=== PATIENT | female | born 1960 | race African-American/Black ===

== ENCOUNTER 2019-05-05 01:34 | Emergency (ER) | payer MEDICAID, OTHER ==
[~2019-05-05] VITALS: Ht 170.2 cm; Wt 104.3 kg
[~2019-05-05 01:34] MED LIST: ABILIFY30 MG ORAL; AMLODIPINE BES2.5 MG ORAL; DIPHENHYDRAMINE25 M1 ORAL; IBUPROFEN600 MG ORAL; KEFLEX500 MG ORAL; LEVETIRACETAM500 MG ORAL; NAPROSYN500 M1 ORAL; NORCO 5-325 TA1 EACH ORAL; TRUSOPT10 ML BOTH EYES; VALPROIC A250 MG/51 PO
[2019-05-05 01:42] VITALS: BP 144/89
--- NOTE | 2019-05-05 01:43 | Emergency Room Report ---
History of Present Illness General Chief Complaint: Abdominal Pain Source: Patient Present Illness HPI Disclaimer: Please note that this report is being documented using [employer] technology. This can lead to erroneous entry secondary to incorrect interpretation by the dictating instrument. HPI: 59-year-old female presents for evaluation of left side pain. Symptoms have been present intermittently for 2 weeks. They are exacerbated by bending and twisting motion and movements of the left upper extremity and relieved by rest. She describes as a sharp stabbing sensation over the mid axillary line that does not radiate and is worse with deep inspiration. Cannot recall an injury. Denies shortness of breath otherwise. Denies chest pain, recent fever , chills, abdominal pain, vomiting or diarrhea. Otherwise in her usual state of health. She had some leftover hydrocodone which she took prior to arrival as the pain was particularly bad tonight prompting her emergency department presentation today but did not achieve significant relief. Denies any dysuria, hematuria, other symptoms at this time PMH: Hypertension, hyperlipidemia, diabetes, bursitis, tendinitis PSH: Reviewed in chart Allergies: Acetaminophen, hydrocodone, morphine listed though she has been taking these medications Social Hx: Denies alcohol tobacco use Allergies: Coded Allergies: No Known Allergies (Unverified , 05/05/19) Patient History Last Menstrual Period: UNK Now: No Nursing Documentation-PMH Past Medical History: No History, Except For Hx Hypertension: Yes Hx Cerebrovascular Accident: Yes Hx Seizures: Yes Review of Systems All Other Systems: negative except mentioned in HPI Physical Exam Vital Signs Date Time Temp Pulse Resp B/P (MAP) Pulse Ox O2 Delivery O2 Flow Rate FiO2 05/05/19 01:31 98.1 85 21 144/89 (107) 97 Room Air General: Awake and alert, no acute distress HEENT: NC/AT. EOMI. Chest Wall: Tenderness to palpation over the lower rib cage below the left breast and circumferentially around the mid axillary line and mid scapular line on the left side. No crepitus, no deformity. Cardiovascular: RRR. S1 and S2 normal. No murmur appreciated Resp: Normal work of breathing. No cough, wheezing or crackles appreciated Abdomen: Abdomen is soft, nondistended. Nontender MSK: Normal tone and bulk. Moving all extremities. No obvious deformity. Neuro: Awake and alert. Mentating appropriately. Back/Spine: No CVA tenderness. Medical Decision Making Diagnostic Impression: Primary Impression: Chest wall pain Additional Impression: Muscle spasm ER Course 59-year-old female presents for evaluation of left-sided chest pain exacerbated by movement and is relieved by rest for the past 2 weeks. Patient's pain is very reproducible and consistent with muscle spasm. She will be treated in the emergency department with Toradol, Valium and lidocaine patches. There is no trauma, the patient denies any cardiac type chest pain or any other changes in her health and I do not believe she requires emergent imaging or lab work at this time. Reevaluation Time: 02:30 Last Vital Signs Date Time Temp Pulse Resp B/P (MAP) Pulse Ox O2 Delivery O2 Flow Rate FiO2 05/05/19 01:31 98.1 85 21 144/89 (107) 97 Room Air Reevaluation Impression Patient notes improvement is able to ambulate in the emergency department. She will be discharged home with additional prescriptions for Robaxin and lidocaine patches. She states she has plenty of pain medication at home already from other prescribers. She will follow-up with her PMD and return to the emergency department any new or worsening symptoms. She understands and agrees with this treatment plan. Disposition: HOME, SELF-CARE Condition: Improved Scripts Lidocaine Patch* (Lidoderm Patch*) 1 Each Adh..patch 1 PATCH TOPIC DAILY, #7 PATCH 0 Refills Patch(es) may remain in place for up to 12 hours in any 24-hour period. Prov: Wero Nieves MD 05/05/19 Methocarbamol* (ROBAXIN-750*) 750 Mg Tablet 750 MG PO QID, #28 TAB 0 Refills Prov: Wero Nieves MD 05/05/19 Wero Nieves MD May 05, 2019 01:43
--- NOTE | 2019-05-05 01:44 | NUR ---
ED Nurse Note: Pt brought in by ambulance from home c/o 10 L sided flank pain on inspiration radiating to the L back [id number]. Pt denies trauma or injury. Pt reports pain medication ineffective. VSS Pt A&Ox4
[2019-05-05] MEDS ORDERED: Ketorolac 30mg Inj IM ONE (01:45)
[2019-05-05] MEDS ORDERED: ROBAXIN-750750 MG PO (02:37)
[2019-05-05] MEDS ORDERED: LIDODERM700 M1 TOPIC (02:37)
[2019-05-05] MEDS ORDERED: Methocarbamol 750mg tab ORAL ONE (02:45)
[2019-05-05 02:50] VITALS: BP 144/89
--- NOTE | 2019-05-05 02:50 | NUR ---
ER DISCHARGE note: Pt cleared for discharge by ERMD, pt reports lessened pain from 10/10 to 6/10, given discharge instructions and perscriptions, verbalized understanding. Pt able to ambulate with walker without difficulty. VSS. Pt left in [employer].
== END 2019-05-05 02:50 | disposition home or self-care (01) ==
LOC: EDBD 01:34 → EMR 02:40
DX: R07.9 Chest pain, unspecified (principal); M62.838 Other muscle spasm; I10 Essential (primary) hypertension; E78.5 Hyperlipidemia, unspecified; E11.9 Type 2 diabetes mellitus without complications; G40.909 Epilepsy, unspecified, not intractable, without status epilepticus; Z86.73 Personal history of transient ischemic attack (TIA), and cerebral infarction without residual deficits
CPT/HCPCS: 96372; J1885; Z7502; 99283

== ENCOUNTER 2020-07-01 10:05 | Emergency (ER) | payer OTHER ==
[~2020-07-01] VITALS: Ht 165.1 cm; Wt 72.6 kg
[~2020-07-01 10:05] MED LIST changes: +LIDODERM700 M1 TOPIC; +ROBAXIN-750750 MG PO
[2020-07-01 10:15] VITALS: BP 166/88
--- NOTE | 2020-07-01 10:18 | NUR ---
ED Nurse Note: Patient was brought in by ambulance from home due to being altered since this morning ~ 0830 Patient has CA and currently receiving chemo tx (pill) once a week. Per family members patient's base line AAO x3. Patient presented calm, AAO x1, VSS at this time.
[2020-07-01 10:29] VITALS: BP 135/70
[2020-07-01] MEDS ORDERED: Acetaminophen 500mg (ES) tab ORAL ONE (10:30)
--- NOTE | 2020-07-01 10:31 | NUR ---
ED Nurse Note: Dr. Galaviz notified of oral temp 103.6F.
[2020-07-01 11:25] LABS: HEMATOCRIT 38.9 % (37.0-47.0); HEMOGLOBIN 13.2 G/DL (12.0-16.0); MEAN CORPUSCULAR VOLUME 94 FL (80-99); PLATELET COUNT 343 K/UL (150-450); RED BLOOD COUNT 4.16 M/UL (4.20-5.40); RED CELL DISTRIBUTION WIDTH 12.4 % (11.6-14.8)
--- NOTE | 2020-07-01 11:34 | NUR ---
ED Nurse Note: Guilherme (son) [phone]
[2020-07-01 11:35] LABS: INR 1.2 (0.9-1.1)
[2020-07-01 12:06] LABS: ALANINE AMINOTRANSFERASE 31 U/L (12-78); ALBUMIN 2.9 G/DL (3.4-5.0); ALBUMIN/GLOBULIN RATIO 0.6 (1.0-2.7); ALKALINE PHOSPHATASE 64 U/L (46-116); ANION GAP 9 mmol/L (5-15); ASPARTATE AMINO TRANSFERASE 53 U/L (15-37); BILIRUBIN,TOTAL 0.7 MG/DL (0.2-1.0); BLOOD UREA NITROGEN 9 mg/dL (7-18); CALCIUM 8.7 MG/DL (8.5-10.1); CARBON DIOXIDE 29 MMOL/L (21-32); CHLORIDE 96 MMOL/L (98-107); FERRITIN 1894 NG/ML (8-388); LACTATE DEHYDROGENASE 446 U/L (81-234); POTASSIUM 2.4 MMOL/L (3.5-5.1); SODIUM 134 MMOL/L (136-145)
[2020-07-01] MEDS ORDERED: Azithromycin 500 MG in NS 275 ML IV ONE (12:15)
[2020-07-01] MEDS ORDERED: NS w/KCl 40mEq 1,000 ML IV SCH (12:15)
[2020-07-01] MEDS ORDERED: cefTRIAXone 1 GM in NS 55 ML IVPB ONE (12:15)
[2020-07-01] MEDS ORDERED: dexAMETHasone 10mg/ml Inj IV ONE (13:00)
[2020-07-01] MEDS ORDERED: Enoxaparin 100mg Inj SUBQ ONE (13:00)
[2020-07-01 13:14] LABS: APPEARANCE,URINE SLIGHTLY CLOUDY; BILIRUBIN, URINE NEGATIVE (NEGATIVE); GLUCOSE, URINE (UA) NEGATIVE (NEGATIVE); KETONES,URINE 1+ (NEGATIVE); LEUKOCYTE ESTERASE ,URINE 1+ (NEGATIVE); NITRITE,URINE NEGATIVE (NEGATIVE); PH,URINE 6.5 (4.5-8.0); PROTEIN,URINE 3+ (NEGATIVE); UROBILINOGEN,URINE 1 MG/DL (0.0-1.0)
[2020-07-01 13:18] LABS: COLOR,URINE PALE YELLOW
--- NOTE | 2020-07-01 14:37 | NUR ---
ED Nurse Note: RN unable to reconcile med as patient is altered and no family member is available at this time.
--- NOTE | 2020-07-01 14:41 | Emergency Room Report ---
History of Present Illness General Chief Complaint: Altered Mental Status Source: Medical Record, EMS Present Illness HPI 60-year-old female presents for evaluation. Brought in by EMS from home. Increased confusion x1 day. Febrile. Patient states she feels okay. Cannot provide any additional history. No reported cough or chest pain. No shortness of breath. No other aggravating relieving factors. 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 COVID-19 Screening: PUI COVID-19 COVID-19 Testing Source: unknown Patient History Past Surgical History: none Pertinent Family History: none Social History: Denies: smoking, alcohol use, drug use Now: No Immunizations: UTD Reviewed Nursing Documentation: PMH: Agreed; PSxH: Agreed Nursing Documentation-PMH Past Medical History: No History, Except For Hx Hypertension: Yes Hx Asthma: Yes Hx Diabetes: Yes Hx Cancer: Yes - multiple myeloma Hx Cerebrovascular Accident: Yes Hx Seizures: No Review of Systems All Other Systems: negative except mentioned in HPI Physical Exam Vital Signs Date Time Temp Pulse Resp B/P (MAP) Pulse Ox O2 Delivery O2 Flow Rate FiO2 07/01/20 10:05 97.9 116 24 166/88 (114) 99 Nasal Cannula 2.0 Sp02 EP Interpretation: reviewed, normal General Appearance: no apparent distress, alert, GCS 15, non-toxic Head: normocephalic, atraumatic Eyes: bilateral eye normal inspection, bilateral eye PERRL ENT: hearing grossly normal, normal pharynx, no angioedema, normal voice Neck: full range of motion, supple/symm/no masses Respiratory: chest non-tender, lungs clear, normal breath sounds, speaking full sentences Cardiovascular #1: regular rate, rhythm, no edema Cardiovascular #2: 2+ carotid (R), 2+ carotid (L), 2+ radial (R), 2+ radial (L), 2+ dorsalis pedis (R), 2+ dorsalis pedis (L) Gastrointestinal: normal bowel sounds, non tender, soft, non-distended, no guarding, no rebound Rectal: deferred Genitourinary: normal inspection, no CVA tenderness Musculoskeletal: back normal, normal range of motion, gait/station normal, non- tender Neurologic: other - disoriented Psychiatric: other - disoriented Reflexes: 3+ bicep (R), 3+ bicep (L), 3+ tricep (R), 3+ tricep (L), 3+ knee (R), 3+ knee (L) Skin: no rash Lymphatic: no adenopathy Medical Decision Making Diagnostic Impression: Primary Impression: COVID-19 Additional Impressions: Altered level of consciousness Hypokalemia ER Course Hospital Course 60-year-old female presents with increased confusion, fever Differential diagnoses include: Pneumonia, CHF exacerbation, pneumothorax, fluid overload Clinical course Patient placed on stretcher. In isolation. I wore full PPE. On hall monitor with stable vitals. After initial history and physical, I ordered labs, IV fluids, EKG, chest x-ray, blood cultures, UA. Labs -leukocytosis noted, hemoglobin/hematocrit stable, K 2.4, CXR - patchy bilateral opacities EKG - NSR no acute ischemic changes interpreted by me Covid positive Given Lovenox due to elevated D-dimer. Not hypoxic. Not requiring supplemental oxygen. Given antibiotics. Potassium repleted Because of insurance patient will be transferred I feel this is a highly complex case requiring extensive working including EKG/Rhythm strip, Xray/CT/US, Blood/urine lab work, repeat exams while in ED, and administration of strong opiates/narcotics for pain control, admission to hospital or close patient follow up. Diagnosis - COVID19, ALOC, hypokalemia transferred in serious condition Laboratory Tests Test 07/01/20 10:55 White Blood Count 11.0 K/UL (4.8-10.8) H Red Blood Count 4.16 M/UL (4.20-5.40) L Hemoglobin 13.2 G/DL (12.0-16.0) Hematocrit 38.9 % (37.0-47.0) Mean Corpuscular Volume 94 FL (80-99) Mean Corpuscular Hemoglobin 31.8 PG (27.0-31.0) H Mean Corpuscular Hemoglobin Concent 34.0 G/DL (32.0-36.0) Red Cell Distribution Width 12.4 % (11.6-14.8) Platelet Count 343 K/UL (150-450) Mean Platelet Volume 10.1 FL (6.5-10.1) Neutrophils (%) (Auto) % (45.0-75.0) Lymphocytes (%) (Auto) % (20.0-45.0) Monocytes (%) (Auto) % (1.0-10.0) Eosinophils (%) (Auto) % (0.0-3.0) Basophils (%) (Auto) % (0.0-2.0) Differential Total Cells Counted 100 Neutrophils % (Manual) 91 % (45-75) H Lymphocytes % (Manual) 5 % (20-45) L Monocytes % (Manual) 4 % (1-10) Eosinophils % (Manual) 0 % (0-3) Basophils % (Manual) 0 % (0-2) Band Neutrophils 0 % (0-8) Platelet Estimate Adequate Platelet Morphology Normal Red Blood Cell Morphology Normal Prothrombin Time 12.7 SEC (9.30-11.50) H Prothromb Time International Ratio 1.2 (0.9-1.1) H Activated Partial Thromboplast Time 24 SEC (23-33) D-Dimer 3.86 mg/L FEU (0.00-0.49) H Urine Color Pale yellow Urine Appearance Slightly cloudy Urine pH 6.5 (4.5-8.0) Urine Specific [place] 1.015 (1.005-1.035) Urine Protein 3+ (NEGATIVE) H Urine Glucose (UA) Negative (NEGATIVE) Urine Ketones 1+ (NEGATIVE) H Urine Blood 2+ (NEGATIVE) H Urine Nitrite Negative (NEGATIVE) Urine Bilirubin Negative (NEGATIVE) Urine Urobilinogen 1 MG/DL (0.0-1.0) H Urine Leukocyte Esterase 1+ (NEGATIVE) H Urine RBC 0-2 /HPF (0 - 2) Urine WBC 2-4 /HPF (0 - 2) Urine Squamous Epithelial Cells Few /LPF (NONE/OCC) Urine Bacteria Occasional /HPF (NONE) Urine Mucus Moderate /LPF (NONE/OCC) H Sodium Level 134 MMOL/L (136-145) L Potassium Level 2.4 MMOL/L (3.5-5.1) *L Chloride Level 96 MMOL/L (98-107) L Carbon Dioxide Level 29 MMOL/L (21-32) Anion Gap 9 mmol/L (5-15) Blood Urea Nitrogen 9 mg/dL (7-18) Creatinine 1.0 MG/DL (0.55-1.30) Estimat Glomerular Filtration Rate > 60 mL/min (>60) Glucose Level 128 MG/DL (74-106) H Lactic Acid Level 1.50 mmol/L (0.4-2.0) Calcium Level 8.7 MG/DL (8.5-10.1) Ferritin 1894 NG/ML (8-388) H Total Bilirubin 0.7 MG/DL (0.2-1.0) Aspartate Amino Transf (AST/SGOT) 53 U/L (15-37) H Alanine Aminotransferase (ALT/SGPT) 31 U/L (12-78) Alkaline Phosphatase 64 U/L (46-116) Lactate Dehydrogenase 446 U/L (81-234) H C-Reactive Protein, Quantitative Pending Pro-B-Type Natriuretic Peptide 268 pg/mL (0-125) H Total Protein 8.0 G/DL (6.4-8.2) Albumin 2.9 G/DL (3.4-5.0) L Globulin 5.1 g/dL Albumin/Globulin Ratio 0.6 (1.0-2.7) L Lipase 218 U/L (73-393) EKG Diagnostic Results Troponin ordered: Yes Rate: normal Rhythm: NSR ST Segments: no acute changes ASA given to the pt in ED: No Rhythm Strip Diag. Results EP Interpretation: yes Rhythm: NSR, no PVC's, no ectopy Chest X-Ray Diagnostic Results Chest X-Ray Diagnostic Results : Chest X-Ray Ordered: Yes # of Views/Limited/Complete: 1 View Indication: Other EP Interpretation: Yes Interpretation: no effusion, no pneumothorax, other - patchy opacities Impression: Other - covid pneumonia Electronically Signed by: Electronically signed by Fabio Puri MD Last Vital Signs Date Time Temp Pulse Resp B/P (MAP) Pulse Ox O2 Delivery O2 Flow Rate FiO2 07/01/20 12:15 99.9 07/01/20 10:29 103 28 135/70 99 Room Air 07/01/20 10:15 2.0 Status: improved Disposition: SHORT-TERM HOSP Condition: Serious Referrals: [facility],REFERRING (PCP) Fabio Puri MD Jul 01, 2020 14:41
--- NOTE | 2020-07-01 15:27 | NUR ---
REPORT GIVEN TO [facility] IS TO BE TRANSFERD VIA [facility]
--- NOTE | 2020-07-01 16:15 | NUR ---
report given to [facility] for transport no shortness of breath awke alert oriented .patient is transferd to [facility] room 102 a via [facility]
[2020-07-01 16:31] VITALS: BP 138/75
--- NOTE | 2020-07-01 18:18 | Diagnostic Imaging Report ---
Indication: Shortness of breath Technique: One view of the chest Comparison: 08/18/2012 Findings: There are bilateral streaky and patchy infiltrates. Heart size is upper limits normal. The pleural spaces are clear. Impression: Bilateral streaky and patchy infiltrates, likely multifocal pneumonia.
--- NOTE | 2020-07-02 15:58 | Cardiology Report ---
APPROVED REPORT EKG Measurement Heart [id number] [id number] <Conclusion> Normal sinus rhythm Minimal voltage criteria for LVH, may be normal variant Nonspecific ST abnormality Abnormal ECG
== END 2020-07-01 16:45 | disposition short-term general hospital (02) ==
LOC: EDBD 10:05 → EMR 12:23
DX: U07.1 COVID-19 (principal); R40.4 Transient alteration of awareness; E87.6 Hypokalemia; I10 Essential (primary) hypertension; J45.909 Unspecified asthma, uncomplicated; Z86.73 Personal history of transient ischemic attack (TIA), and cerebral infarction without residual deficits; Z85.79 Personal history of other malignant neoplasms of lymphoid, hematopoietic and related tissues
CPT/HCPCS: 36415; 71045; 80053; 81003; 82728; 83605; 83615; 83690; 83880; 85007; 85025; 85379; 85610; 85730; 86140; 87040; 93005; 96361; 96365; 96367; 96372; 96375; J0456; J0696; J1650; J7030; J7050; U0002; Z7502; 99285; J8499

== ENCOUNTER 2020-08-20 19:09 | Inpatient (IN) | payer OTHER ==
[~2020-08-20] VITALS: Ht 170.2 cm; Wt 93.0 kg
[2020-08-20 19:15] VITALS: BP 153/91
[2020-08-20] MEDS ORDERED: Morphine Sulfate 4mg/ml Inj (IV USE ONLY) IVP ONE ×2 (19:15→20:45)
--- NOTE | 2020-08-20 19:15 | NUR ---
Note vicone in EDM - 08/20/20 at 2321 by [email or web address] ED Nurse Note: Pte arrived to ER via ambulance c/o chest pain nausea and vomiting all day as pte report unmount amount of time. Pte rates the chest pain 7/[address] no radiation. Pte was place in the monitor. Safety and comfort measures taken . Will continue to monitor the patient .
--- NOTE | 2020-08-20 19:29 | Emergency Room Report ---
History of Present Illness General Chief Complaint: Abdominal Pain Source: Patient, EMS Present Illness HPI Patient has had a week of nausea vomiting and diarrhea. She denies vomiting any coffee grounds or blood. She is unable to keep down any medications or any fluids. She started having chest pain radiating towards her back for the last 3 days. Paramedics performed an EKG which was normal sinus rhythm in the field. The pain is worse when she moves about. Pain is rated 8/10 both in her abdomen but mainly in her chest. Or positional and burning pain. She states that she was recently diagnosed with a urinary tract infection. She was given a prescription for twice a day antibiotic but has been unable to keep anything down and unable to start the antibiotic. She denies fevers or chills. The patient is in remission with multiple myeloma. However she is still undergoing chemotherapy. This week is a week off of using chemotherapy. She states that she has problems with nausea and vomiting and diarrhea associated with use of the chemotherapy. The patient is taking Keppra and valproic acid. Patient has a history of hepatitis C. The patient has a history of left shoulder bursitis. The patient denies exposure to Covid positive contacts. No sore throat, palpitations, shortness of breath, rashes, depression, anxiety, visual changes, dizziness, headache. 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 COVID-19 Screening: Negative COVID-19 Patient History Past Medical History: see triage record, old chart reviewed, other - Multiple myeloma Past Surgical History: other - Cervical stabilization Social History: Denies: smoking, alcohol use, drug use Social History Narrative From home Reviewed Nursing Documentation: PMH: Agreed; PSxH: Agreed Nursing Documentation-PMH Hx Hypertension: Yes Hx Asthma: Yes Hx Diabetes: Yes Hx Cancer: Yes - multiple myeloma Hx Cerebrovascular Accident: Yes Hx Seizures: No Review of Systems All Other Systems: negative except mentioned in HPI Physical Exam Vital Signs Date Time Temp Pulse Resp B/P (MAP) Pulse Ox O2 Delivery O2 Flow Rate FiO2 08/20/20 19:09 99.3 90 20 153/91 (111) 94 Room Air Sp02 EP Interpretation: reviewed, normal General Appearance: well appearing, no apparent distress, GCS 15, non-toxic Head: normocephalic, atraumatic Eyes: bilateral eye normal inspection, bilateral eye PERRL, bilateral eye EOMI ENT: moist mucus membranes - Slightly dry Neck: full range of motion, supple Respiratory: lungs clear, normal breath sounds, other - Posterior muscular tenderness left paraspinals and scapular area Cardiovascular #1: regular rate, rhythm Cardiovascular #2: 2+ radial (R) Gastrointestinal: normal inspection, normal bowel sounds, non tender, no mass, non-distended Musculoskeletal: back normal, normal range of motion, gait/station normal Neurologic: alert, oriented x3 Medical Decision Making Diagnostic Impression: Primary Impression: Nausea vomiting and diarrhea Additional Impressions: Hypokalemia Posterior chest wall tenderness ER Course Patient presents with uncontrolled nausea vomiting and diarrhea for over a week. In addition she has a diagnosis of multiple myeloma and was told that she has a urinary tract infection has been unable to take antibiotics. Differential includes gastritis, gastroenteritis, chemotherapy associated nausea vomiting and diarrhea, untreated urinary tract infection, sepsis amongst others. She is also complaining about chest pain and myocardial damage needs to be excluded. Patient evaluated with EKG, chest x-ray and labs. She does not have any abdominal tenderness at the moment and CT of the abdomen is not indicated. She has not been on antibiotics and therefore C. difficile colitis is less likely. 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 IV hydration is ordered as well as Zofran, Pepcid and morphine. EKG NSSTTW changes. Patient c/o continued nausea and epigastric pain. Better pain control but 5/10 pain. Reglan and morphine ordered. Awaiting labs. If leukocytosis, may order CT abdomen. 2044 Patient with normal white count. Chest x-ray no infiltrates. CMP unremarkable aside from hypokalemia. Potassium ordered. Urinalysis clear. Patient improved with treatment. However due to comorbidities and hypokalemia patient admitted to the hospital. Discussed with son and patient. Laboratory Tests Test 08/20/20 20:18 08/20/20 20:30 White Blood Count 7.3 K/UL (4.8-10.8) Red Blood Count 4.01 M/UL (4.20-5.40) L Hemoglobin 12.4 G/DL (12.0-16.0) Hematocrit 36.2 % (37.0-47.0) L Mean Corpuscular Volume 90 FL (80-99) Mean Corpuscular Hemoglobin 30.9 PG (27.0-31.0) Mean Corpuscular Hemoglobin Concent 34.2 G/DL (32.0-36.0) Red Cell Distribution Width 13.6 % (11.6-14.8) Platelet Count 247 K/UL (150-450) Mean Platelet Volume 9.0 FL (6.5-10.1) Neutrophils (%) (Auto) 71.0 % (45.0-75.0) Lymphocytes (%) (Auto) 12.1 % (20.0-45.0) L Monocytes (%) (Auto) 15.0 % (1.0-10.0) H Eosinophils (%) (Auto) 0.2 % (0.0-3.0) Basophils (%) (Auto) 1.8 % (0.0-2.0) Prothrombin Time 11.5 SEC (9.30-11.50) Prothrombin Time INR 1.0 (0.9-1.1) Activated Partial Thromboplast Time 21 SEC (23-33) L Sodium Level 132 MMOL/L (136-145) L Potassium Level 2.6 MMOL/L (3.5-5.1) *L Chloride Level 95 MMOL/L (98-107) L Carbon Dioxide Level 24 MMOL/L (21-32) Anion Gap 12 mmol/L (5-15) Blood Urea Nitrogen 7 mg/dL (7-18) Creatinine 0.7 MG/DL (0.55-1.30) Estimated Glomerular Filtration Rate > 60 mL/min (>60) Glucose Level 115 MG/DL (74-106) H Lactic Acid Level 0.80 mmol/L (0.4-2.0) Calcium Level 8.4 MG/DL (8.5-10.1) L Magnesium Level 1.9 MG/DL (1.8-2.4) Total Bilirubin 0.5 MG/DL (0.2-1.0) Aspartate Amino Transferase (AST) 25 U/L (15-37) Alanine Aminotransferase (ALT) 22 U/L (12-78) Alkaline Phosphatase 75 U/L (46-116) Total Creatine Kinase 145 U/L (26-308) Troponin I 0.010 ng/mL (0.000-0.056) Pro-B-Type Natriuretic Peptide 148 pg/mL (0-125) H Total Protein 6.4 G/DL (6.4-8.2) Albumin 3.2 G/DL (3.4-5.0) L Globulin 3.2 g/dL Albumin/Globulin Ratio 1.0 (1.0-2.7) Lipase 257 U/L (73-393) Urine Color Pale yellow Urine Appearance Slightly cloudy Urine pH 7 (4.5-8.0) Urine Specific [place] 1.005 (1.005-1.035) Urine Protein 1+ (NEGATIVE) H Urine Glucose (UA) Negative (NEGATIVE) Urine Ketones Negative (NEGATIVE) Urine Blood 1+ (NEGATIVE) H Urine Nitrite Negative (NEGATIVE) Urine Bilirubin Negative (NEGATIVE) Urine Urobilinogen Normal MG/DL (0.0-1.0) Urine Leukocyte Esterase Negative (NEGATIVE) Urine RBC 0-2 /HPF (0 - 2) Urine WBC 2-4 /HPF (0 - 2) Urine Squamous Epithelial Cells Many /LPF (NONE/OCC) H Urine Amorphous Sediment Moderate /LPF (NONE) H Urine Bacteria Few /HPF (NONE) EKG Diagnostic Results Rate: normal Rhythm: NSR ST Segments: no acute changes Rhythm Strip Diag. Results EP Interpretation: yes Rhythm: NSR, no PVC's, no ectopy Chest X-Ray Diagnostic Results Chest X-Ray Diagnostic Results : Chest X-Ray Ordered: Yes # of Views/Limited/Complete: 1 View Indication: Other EP Interpretation: Yes Interpretation: no consolidation, no effusion, no pneumothorax, other - cervical stabilization Impression: No acute disease Electronically Signed by: Electronically signed by Colin Healy MD Last Vital Signs Date Time Temp Pulse Resp B/P (MAP) Pulse Ox O2 Delivery O2 Flow Rate FiO2 08/20/20 22:00 99.3 87 18 152/79 100 Room Air Status: improved Disposition: ADMITTED INPATIENT Condition: Serious Colin Healy MD Aug 20, 2020 19:29
--- NOTE | 2020-08-20 20:40 | NUR ---
Pte complain of pain . EDP aware . Will carry the orders . Will continue to monitor.
[2020-08-20 20:41] LABS: BILIRUBIN, URINE NEGATIVE (NEGATIVE); COLOR,URINE PALE YELLOW; GLUCOSE, URINE (UA) NEGATIVE (NEGATIVE); KETONES,URINE NEGATIVE (NEGATIVE); LEUKOCYTE ESTERASE ,URINE NEGATIVE (NEGATIVE); NITRITE,URINE NEGATIVE (NEGATIVE); PH,URINE 7 (4.5-8.0); PROTEIN,URINE 1+ (NEGATIVE); UROBILINOGEN,URINE NORMAL MG/DL (0.0-1.0)
[2020-08-20 20:42] LABS: APPEARANCE,URINE SLIGHTLY CLOUDY
[2020-08-20 20:44] LABS: BASOPHILS % (AUTO) 1.8 % (0.0-2.0); EOSINOPHILS % (AUTO) 0.2 % (0.0-3.0); HEMATOCRIT 36.2 % (37.0-47.0); HEMOGLOBIN 12.4 G/DL (12.0-16.0); LYMPHOCYTES % (AUTO) 12.1 % (20.0-45.0); MEAN CORPUSCULAR VOLUME 90 FL (80-99); PLATELET COUNT 247 K/UL (150-450); RED BLOOD COUNT 4.01 M/UL (4.20-5.40); RED CELL DISTRIBUTION WIDTH 13.6 % (11.6-14.8); WHITE BLOOD COUNT 7.3 K/UL (4.8-10.8)
[2020-08-20] MEDS ORDERED: Metoclopramide 10mg/2ml Inj IVP ONE (20:45)
[2020-08-20 20:59] LABS: ALANINE AMINOTRANSFERASE 22 U/L (12-78); ALBUMIN 3.2 G/DL (3.4-5.0); ALKALINE PHOSPHATASE 75 U/L (46-116); ANION GAP 12 mmol/L (5-15); ASPARTATE AMINO TRANSFERASE 25 U/L (15-37); BILIRUBIN,TOTAL 0.5 MG/DL (0.2-1.0); BLOOD UREA NITROGEN 7 mg/dL (7-18); CALCIUM 8.4 MG/DL (8.5-10.1); CARBON DIOXIDE 24 MMOL/L (21-32); CHLORIDE 95 MMOL/L (98-107); CREATINE KINASE 145 U/L (26-308); CREATININE 0.7 MG/DL (0.55-1.30); SODIUM 132 MMOL/L (136-145)
[2020-08-20 21:10] LABS: POTASSIUM 2.6 MMOL/L (3.5-5.1)
--- NOTE | 2020-08-20 21:12 | NUR ---
Gray ramirez in [facility] - 08/20/20 at 2321 by [email or web address] ED Nurse Note: Pts father contact # [phone]/ [phone]
[2020-08-20] MEDS ORDERED: Methocarbamol 750mg tab ORAL PRN (21:30)
[2020-08-20] MEDS ORDERED: D5NS 1,000 ML IV SCH (21:30)
[2020-08-20 22:00] VITALS: BP 152/79
--- NOTE | 2020-08-20 22:00 | NUR ---
ED Nurse Note: Pt moved over to room 6. Pt hooked up to cardiac nurse practitioner. All of pt's belongings moved to room 6. Pt has no other needs identified at this time.
--- NOTE | 2020-08-20 22:50 | NUR ---
pt aox3. no complaints at this time. pt provided commode to bedside. pt connected to monitor. v/s stable. pt in no distress. will continue to monitor pt closely.
[2020-08-20 23:00] VITALS: BP 163/75
[2020-08-21] VITALS (10 sets, daily range): BP systolic 127–166; BP diastolic 70–82
--- NOTE | 2020-08-21 00:05 | NUR ---
ED Nurse Note: Pt reports she is feeling a lot better, reports she would like a zofran prescription when she goes home, because it works really good. Pt has no new needs identified at this time.
--- NOTE | 2020-08-21 00:45 | NUR ---
ED Nurse Note: Started 2nd IV due to pt discomfort. Removed right wrist IV. Pt toileted and back to bed resting, no new needs identified at this time.
[2020-08-21] MEDS: HYDROcodone/Acetamin 5/325 tab ORAL PRN ×3 (02:13→21:19)
--- NOTE | 2020-08-21 02:13 | NUR ---
ED Nurse Note: Pt c/o head pain 01/03. Gave PRN [place] as ordered. Pt is settled, no new needs identified at this time.
--- NOTE | 2020-08-21 02:53 | NUR ---
ED Nurse Note: Pt toileted, moved pt to inpt bed. No new needs identified at this time.
--- NOTE | 2020-08-21 04:10 | NUR ---
ED Nurse Note: Pt is resting, no new needs identified at this time.
--- NOTE | 2020-08-21 05:00 | NUR ---
ED Nurse Note: Blood sent to lab.
--- NOTE | 2020-08-21 05:16 | NUR ---
ED Nurse Note: Pt c/o nausea, zofran given as ordered.
[2020-08-21 05:39] LABS: ALANINE AMINOTRANSFERASE 19 U/L (12-78); ALBUMIN 2.9 G/DL (3.4-5.0); ALBUMIN/GLOBULIN RATIO 0.8 (1.0-2.7); ALKALINE PHOSPHATASE 70 U/L (46-116); ANION GAP 9 mmol/L (5-15); ASPARTATE AMINO TRANSFERASE 21 U/L (15-37); BILIRUBIN,TOTAL 0.6 MG/DL (0.2-1.0); BLOOD UREA NITROGEN 7 mg/dL (7-18); CALCIUM 8.1 MG/DL (8.5-10.1); CARBON DIOXIDE 26 MMOL/L (21-32); CHLORIDE 101 MMOL/L (98-107); CREATININE 0.9 MG/DL (0.55-1.30); SODIUM 135 MMOL/L (136-145)
[2020-08-21 05:43] LABS: POTASSIUM 2.6 MMOL/L (3.5-5.1)
--- NOTE | 2020-08-21 05:54 | NUR ---
ED Nurse Note: Pt ambulated to bathroom with no assist. Pt back in bed and on threat monitoring analyst, no new needs identified at this time.
--- NOTE | 2020-08-21 06:57 | NUR ---
ED Nurse Note: Clear liquid tray provided.
--- NOTE | 2020-08-21 07:34 | NUR ---
rounded with pt after shift change, pt is AAOX4. pt states multiple episodes of nausea, vomiting, and diarrhea x several days. admitting physican at bedside and states will order something for nausea, pt assisted to bathroom at this time and updated vital signs.
[2020-08-21] MEDS ORDERED: Morphine Sulfate 4mg/ml Inj (IV USE ONLY) IVP ONE ×2 (08:00→18:45)
--- NOTE | 2020-08-21 08:01 | NUR ---
pt is crying stating for pain. ED provider places order for morphine given at this time
--- NOTE | 2020-08-21 08:44 | History and Physical Report ---
DATE OF ADMISSION: 08/20/2020 CHIEF COMPLAINT: Diarrhea and vomiting. HISTORY OF PRESENT ILLNESS: The patient is a 60-year-old female who presents to the ER with complaints of intractable nausea, vomiting, and diarrhea. According to the patient, a week ago she developed intermittent episodes of nausea, vomiting, diarrhea. She has had more diarrhea than vomiting. She has had mild midepigastric abdominal pain. She denies any fevers or chills. She has had no ill contacts. In June, she did test positive for COVID-19 and was hospitalized for 48 hours. She denies any recent travel or other ill contacts. On evaluation in the emergency room, she was severely dehydrated, hyponatremic, and hypokalemic. She has been started on IV hydration and is now admitted for further evaluation and care. PAST MEDICAL HISTORY: As above includes history of hypertension, borderline diabetes, seizure disorder. PAST SURGICAL HISTORY: The patient has had multiple surgeries in the past. CURRENT MEDICATIONS: Reconciled. The patient does not recall her medications. ALLERGIES: None. FAMILY HISTORY: None. SOCIAL HISTORY: Negative for tobacco, ethanol, or drugs. REVIEW OF SYSTEMS: Negative except for nausea, vomiting, diarrhea. PHYSICAL EXAMINATION: VITAL SIGNS: Temperature 98, pulse 88, respirations 21, blood pressure 166/82. GENERAL: The patient is well-developed, no apparent distress. HEART: Regular rate and rhythm. LUNGS: Clear. ABDOMEN: Soft. Minimally tender in the midepigastric region. EXTREMITIES: No clubbing, cyanosis, or edema. LABORATORY DATA: White count 7, hemoglobin 12. Sodium 132, potassium 2.6, chloride 95, bicarb of 24, BUN , creatinine 0.7. UA showed only 2 to 4 wbc's. ASSESSMENT: This is a 60-year-old female with history of multiple myeloma, hypertension, diabetes, admitted with complaints of intractable nausea, vomiting, diarrhea suspect secondary to gastroenteritis. PLAN: 1. Aggressive fluid resuscitation. 2. Replace potassium. 3. CT scan of the abdomen. 4. We will check stool for C. difficile and stool cultures. 5. If the scan and cultures are unremarkable, the patient can be started on antiemetics and can be started on antidiarrheals. We will continue antiemetics for now. Nash Gayle M.D. DR: Columba JOB#: [id number] CC:
[2020-08-21] MEDS: Dorzolamide 2% 10ml Btl BOTH EYES SCH ×3 (09:28→17:23)
[2020-08-21] MEDS: Valproic Acid 250mg/5ml Liquid ORAL SCH ×2 (09:29→21:19)
[2020-08-21] MEDS: levETIRAcetam 500mg/5ml Liquid NG SCH ×2 (09:30→21:19)
--- NOTE | 2020-08-21 11:10 | Diagnostic Imaging Report ---
EXAM: CT CT Abdomen Pelvis WO Contrast INDICATION: One-week history of nausea vomiting and abdominal pain. COMPARISON: None TECHNIQUE: Axial images were obtained through the abdomen pelvis without intravenous contrast. Sagittal and coronal reformats are generated. All CT scans at this facility are performed using dose modulation techniques as appropriate to a performed exam including the following: automated exposure control with adjustment of the mA and/or kV according to patient size. RADIATION DOSE: CTDIvol: 8 point mGy DLP: 452.8 mGy-cm Dose information generated by the CT scanner is available in PACS. FINDINGS: There are scattered mild peripheral groundglass densities in both lung bases. Consider possible early viral pneumonitis including Covid. The liver and spleen are homogeneous. Gallbladder is without sludge or stone and there is no wall thickening. The pancreas is unremarkable. Adrenals are normal in morphology. The kidneys are normal in size, shape and axis. Small bowel loops are nondistended. The colon is also nondistended with average amount of stool. The appendix is normal. There is no free fluid or free air. No pathologic adenopathy demonstrated. Urinary bladder appears unremarkable. A small fatty supraumbilical ventral hernia noted. Degenerative changes of the lumbar spine noted with multiple lucent lesions identified in the lumbar spine as well as the bony pelvis. Question history of metastatic disease. IMPRESSION: MILD PERIPHERAL GROUNDGLASS DENSITIES IN BOTH LUNG BASES. CONSIDER POSSIBLE EARLY VIRAL PNEUMONITIS INCLUDING COVE AND INFECTION. MULTIPLE LUCENT LESIONS IDENTIFIED IN THE LUMBAR SPINE AND BONY PELVIS. QUESTION HISTORY OF METASTATIC DISEASE. SMALL FATTY SUPRAUMBILICAL HERNIA.
[2020-08-21] MEDS ORDERED: Acetaminophen 500mg (ES) tab ORAL ONE ×2 (12:00→12:02)
--- NOTE | 2020-08-21 12:59 | Diagnostic Imaging Report ---
EXAM: ULTRASOUND Venous Duplex Scan Satnam Leg CLINICAL HISTORY: Pain and edema. COMPARISON: None TECHNIQUE: Doppler examination include grayscale images obtained with and without compression, and color and spectral doppler analysis. FINDINGS: Doppler examination shows normal spontaneity, phasicity, compressibility in the bilateral extremities. There is no thrombus identified by grayscale. Normal color and spectral flow is identified. There is no evidence of valvular incompetency or insufficiency. IMPRESSION: UNREMARKABLE VENOUS DUPLEX.
--- NOTE | 2020-08-21 13:11 | Diagnostic Imaging Report ---
Procedure: XRAY Chest 1v Reason for study: Chest pain. Comparison films: 07/01/2020. FINDINGS: Radiograph is underexposed. Vascularity is normal. The lung cardona are clear bilaterally. Cardiac and mediastinal silhouette are within normal limits. CP angles are sharp. Patient status post cervical fusion. IMPRESSION: NO ACUTE CARDIOPULMONARY DISEASE.
--- NOTE | 2020-08-21 13:42 | NUR ---
pt is now resting comfortably. pt updated on vital signs. pt has eaten sandwich for lunch. charge nurse notified need for pt's tray.
--- NOTE | 2020-08-21 16:13 | NUR ---
patient got up went to the bathroom came back and states she lost balance and fell on the floor dr bowman notified ct head requested
--- NOTE | 2020-08-21 16:48 | Diagnostic Imaging Report ---
EXAM: CT CT Head no Contrast INDICATION: Trauma with headache. TECHNIQUE: Axial images of the brain were obtained with subsequent sagittal and coronal reformats. All CT scans at this facility are performed using dose modulation techniques as appropriate to a performed exam including the following: automated exposure control with adjustment of the mA and/or kV according to patient size. COMPARISON STUDY: None. RADIATION DOSE: CTDIvol: 53.4 mGy DLP: 1004 mGy-cm Dose information generated by the CT scanner is available in PACS. FINDINGS: There is normal symmetry and normal kolb-white differentiation. Calcifications noted along the midline falx. There is no acute large territory cortical infarct, hemorrhage, mass effect or shift. Ventricles and cisterns as well as brainstem and posterior fossa appear unremarkable. The sellar region is normal. Sinuses, mastoid air cells and bony calvarium appear intact. IMPRESSION: NO ACUTE INTRACRANIAL ABNORMALITY.
--- NOTE | 2020-08-21 17:27 | NUR ---
pt is requesting pain medication through IV. charge nurse will page attending provider per pt request
--- NOTE | 2020-08-21 19:16 | Cardiology Report ---
APPROVED REPORT EKG Measurement Heart [id number] <Conclusion> Normal sinus rhythm Nonspecific ST abnormality Abnormal ECG
--- NOTE | 2020-08-21 20:30 | NUR ---
NURSE NOTES: Important Events on Shift: Pt transferred to Tele via rdeputy by Cuong MOBLEY, and Jerrod MOBLEY. Pt belongings accounted for, pt declined putting her pena/valuables in hospital safe. Received bedside report from ITZ Elder. Pt c/o severe 8/10 back and neck pain. Gonzales given as ordered. Pt in bed, awake, AXO x 4, on Room air. Will update MD with pt pain status. Will start plan of care and close monitoring. Patient Status: full code Diet: clear liquid Pending Orders: none Pending Results/Labs: none Pending MD notification: increase in pain Latest Vital Signs: Temperature 97.5 , Pulse 73 , B/P 162 /91 , Respiratory Rate 18 , O2 SAT 99 , Room Air, O2 Flow Rate . Vital Sign Comment: stable per report EKG Rhythm: Sinus Rhythm Rhythm change?: N MD Notified?: - MD Response: Latest Cook Fall Score: 110 Fall Risk: High Risk Safety Measures: Call light Within Reach, Bed Alarm Zone 1, Side Rails Side Rails x3, Bed position Low and Locked. Fall Precautions: Yellow Socks, Yellow Gown, Door Sign, Patient Fall Education
[2020-08-21] MEDS: Morphine Sulfate 2mg/ml Inj(IV/IM USE ONLY) IVP PRN (23:22)
--- NOTE | 2020-08-21 23:25 | NUR ---
NURSE NOTES: Pt continues to c/o 9/10 back pain; previous norco ineffective. Received order from Aleksandra for morphine for moderate pain, see EMAR. Pt administered morphine for pain as ordered. Will continue to monitor closely
[2020-08-22] VITALS: BP 162/91
[2020-08-22 04:00] VITALS: BP 154/86
[2020-08-22] MEDS: Morphine Sulfate 2mg/ml Inj(IV/IM USE ONLY) IVP PRN ×5 (05:15→22:27)
--- NOTE | 2020-08-22 06:44 | NUR ---
NURSE HAND-OFF REPORT: Important Events on Shift: Pt admitted to Tele 205-1 at approx. 2030 on 08/22/20. Pt c/o 8-9/10 back and neck pain, morphine x 2 effective. Patient Status: full code Diet: clear liquid Pending Orders: none Pending Results/Labs: none Pending MD notification: none Latest Vital Signs: Temperature 97.5 , Pulse 66 , B/P 154 /86 , Respiratory Rate 24 , O2 SAT 100 , Room Air, O2 Flow Rate . Vital Sign Comment: stable throughout shift EKG Rhythm: SR w/ Arrhythmia Rhythm change?: N MD Notified?: - MD Response: Latest Cook Fall Score: 110 Fall Risk: High Risk Safety Measures: Call light Within Reach, Bed Alarm Zone 1, Side Rails Side Rails x3, Bed position Low and Locked. Fall Precautions: Yellow Socks, Yellow Gown, Door Sign, Patient Fall Education Report to be given to Ewelina Guillen RN. Plan of care endorsed.
--- NOTE | 2020-08-22 07:30 | NUR ---
NURSE NOTES: Received pt from ITZ Ashford, pt is awake and alert, pt is in RA, no SOB or acute respiratory distress noted. pt is on continues heart monitoring. pt has intact iv access LFA 22G is running well. all needs attended, bed is locked and is in the lowest position, call light within easy reach. will continue to monitor.
[2020-08-22 08:00] VITALS: BP 163/97
--- NOTE | 2020-08-22 08:00 | NUR ---
NURSE NOTES: Dr Gayle visited pt and RN asked him DVT prophylaxis, no order received. stated he will F/U.
[2020-08-22] MEDS: Dorzolamide 2% 10ml Btl BOTH EYES SCH ×3 (09:00→17:21)
[2020-08-22] MEDS: levETIRAcetam 500mg/5ml Liquid NG SCH ×2 (09:23→20:26)
[2020-08-22] MEDS: Valproic Acid 250mg/5ml Liquid ORAL SCH ×2 (09:23→20:26)
[2020-08-22 10:13] LABS: BASOPHILS % (AUTO) 1.2 % (0.0-2.0); EOSINOPHILS % (AUTO) 0.5 % (0.0-3.0); HEMATOCRIT 41.5 % (37.0-47.0); HEMOGLOBIN 13.7 G/DL (12.0-16.0); LYMPHOCYTES % (AUTO) 18.6 % (20.0-45.0); MEAN CORPUSCULAR VOLUME 91 FL (80-99); MONOCYTES % (AUTO) 10.5 % (1.0-10.0); NEUTROPHILS % (AUTO) 69.2 % (45.0-75.0); PLATELET COUNT 291 K/UL (150-450); RED BLOOD COUNT 4.55 M/UL (4.20-5.40); RED CELL DISTRIBUTION WIDTH 13.6 % (11.6-14.8); WHITE BLOOD COUNT 6.6 K/UL (4.8-10.8)
[2020-08-22 10:35] LABS: ANION GAP 10 mmol/L (5-15); BLOOD UREA NITROGEN 7 mg/dL (7-18); CALCIUM 8.2 MG/DL (8.5-10.1); CARBON DIOXIDE 26 MMOL/L (21-32); CHLORIDE 103 MMOL/L (98-107); CREATININE 0.7 MG/DL (0.55-1.30); POTASSIUM 3.2 MMOL/L (3.5-5.1); SODIUM 139 MMOL/L (136-145)
[2020-08-22 10:40] LABS: ALANINE AMINOTRANSFERASE 19 U/L (12-78); ALBUMIN 3.3 G/DL (3.4-5.0); ALBUMIN/GLOBULIN RATIO 0.8 (1.0-2.7); ALKALINE PHOSPHATASE 72 U/L (46-116); ASPARTATE AMINO TRANSFERASE 21 U/L (15-37); BILIRUBIN,TOTAL 0.6 MG/DL (0.2-1.0)
--- NOTE | 2020-08-22 11:58 | NUR ---
NURSE NOTES: Dr Gayle is aware K 3.2, WAITING TO CALL BACK.
[2020-08-22 12:00] VITALS: BP 146/81
--- NOTE | 2020-08-22 14:20 | General Progress Note ---
Subjective ROS Limited/Unobtainable: No Constitutional: Reports: malaise, weakness HEENT: Reports: no symptoms Cardiovascular: Reports: no symptoms Respiratory: Reports: no symptoms Gastrointestinal/Abdominal: Reports: abdominal pain, diarrhea, nausea Genitourinary: Reports: no symptoms Neurologic/Psychiatric: Reports: no symptoms Endocrine: Reports: no symptoms Hematologic/Lymphatic: Reports: no symptoms Allergies: Coded Allergies: No Known Allergies (Unverified , 05/05/19) All Systems: reviewed and negative except above Subjective Continues to have complaints of diarrhea and abdominal pain. Tolerating clear liquid diet. CT scan noted. Objective Last 24 Hour Vital Signs Date Time Temp Pulse Resp B/P (MAP) Pulse Ox O2 Delivery O2 Flow Rate FiO2 08/22/20 12:00 97.5 83 20 146/81 (102) 100 08/22/20 11:47 80 08/22/20 09:23 71 163/97 08/22/20 09:00 Room Air 08/22/20 08:00 97.9 71 20 163/97 (119) 100 08/22/20 07:45 80 08/22/20 05:45 97.5 08/22/20 04:00 97.5 84 24 154/86 (108) 100 08/22/20 04:00 66 08/22/20 00:00 97.5 84 18 162/91 (114) 99 08/22/20 00:00 73 08/21/20 23:52 98.3 08/21/20 23:52 Room Air 08/21/20 23:50 98.3 89 18 145/89 97 08/21/20 21:49 98.0 08/21/20 20:30 97.9 87 20 151/80 (103) 98 08/21/20 17:04 98.0 78 18 160/70 100 Intake and Output 08/21/20 08/22/20 19:00 07:00 Intake Total 1250 ml Output Total 500 ml Balance 750 ml Intake Oral 1050 ml IV Total 200 ml Output Urine Total 500 ml # Voids 3 Laboratory Tests 08/22/20 10:00: White Blood Count 6.6, Red Blood Count 4.55, Hemoglobin 13.7, Hematocrit 41.5, Mean Corpuscular Volume 91, Mean Corpuscular Hemoglobin 30.0, Mean Corpuscular Hemoglobin Concent 32.9, Red Cell Distribution Width 13.6, Platelet Count 291, Mean Platelet Volume 8.4, Neutrophils (%) (Auto) 69.2, Lymphocytes (%) (Auto) 18.6L, Monocytes (%) (Auto) 10.5H, Eosinophils (%) (Auto) 0.5, Basophils (%) (Auto) 1.2, Sodium Level 139, Potassium Level 3.2L, Chloride Level 103, Carbon Dioxide Level 26, Anion Gap 10, Blood Urea Nitrogen 7, Creatinine 0.7, Estimat Glomerular Filtration Rate > 60, Glucose Level 137H, Calcium Level 8.2L, Total Bilirubin 0.6, Aspartate Amino Transf (AST/SGOT) 21, Alanine Aminotransferase (ALT/SGPT) 19, Alkaline Phosphatase 72, Total Protein 7.5, Albumin 3.3L, Globulin 4.2, Albumin/Globulin Ratio 0.8L Height (Feet): 5 Height (Inches): 7.00 Weight (Pounds): 205 General Appearance: WD/WN, no apparent distress Cardiovascular: regular rhythm Respiratory/Chest: lungs clear Abdomen: normal bowel sounds, non tender, soft, no organomegaly, no mass Edema: no edema noted Leg (L), no edema noted Leg (R) Assessment/Plan Problem List: (1) Nausea vomiting and diarrhea ICD Codes: R11.2 - Nausea with vomiting, unspecified; R19.7 - Diarrhea, unspecified SNOMED: 4440521 (2) Hypokalemia ICD Codes: E87.6 - Hypokalemia SNOMED: 08530025 (3) COVID-19 ICD Codes: U07.1 - COVID-19 SNOMED: 139335859 Status: stable, progressing Assessment/Plan: Continue IV hydration Follow-up stool cultures Start on Protonix twice daily Advance diet Monitor labs Nash Gayle MD Aug 22, 2020 14:20
--- NOTE | 2020-08-22 14:33 | NUR ---
NURSE NOTES: pt is complaining back pain radiating to the chest, Dr Gayle is aware and ordered Zofran and Mylanta, noted and carried out. will continue to close monitoring.
[2020-08-22] MEDS: Pantoprazole Inj IVP SCH ×2 (14:45→20:29)
[2020-08-22] MEDS ORDERED: HYDROcodone/Acetamin 5/325 tab ORAL PRN (15:30)
[2020-08-22 16:00] VITALS: BP 138/88
--- NOTE | 2020-08-22 17:11 | NUR ---
INSURANCE FAXED CLINICALS TO [facility] CM: [email or web address] [id number] [phone] [facility] FAX CLINICALS: [phone] & [phone]
--- NOTE | 2020-08-22 19:20 | NUR ---
NURSE HAND-OFF REPORT: Important Events on Shift: Patient Status: Diet: Pending Orders: Pending Results/Labs: Pending MD notification: Latest Vital Signs: Temperature 97.7 , Pulse 81 , B/P 138 /88 , Respiratory Rate 20 , O2 SAT 98 , Room Air, O2 Flow Rate . Vital Sign Comment: EKG Rhythm: Sinus Rhythm Rhythm change?: N MD Notified?: - MD Response: Latest Cook Fall Score: 85 Fall Risk: High Risk Safety Measures: Call light Within Reach, Bed Alarm Zone 1, Side Rails Side Rails x3, Bed position Low and Locked. Fall Precautions: Yellow Socks Yellow Gown Door Sign Patient Fall Education Report given to . pt is sleeping and stable, no stress noted. Endorsed plan of care, endorsed to F/U advance diet if pt tolerate and pain.
[2020-08-22 20:00] VITALS: BP 146/80
--- NOTE | 2020-08-22 23:00 | NUR ---
NURSE NOTES: Assumed pt's care at 1900, report given by ongoing RN. Pt is aox4, no signs of acute of respiratory distress, remains on room air. Pt refused trial for diet advancement, stated not hungry. Cont IVF of D5 with NS with 20Meq, tolerating. Medicated with morphine 2mg IVP per pt's request for c/o severe pain from back radiating to neck and chest, pt appears calm & comfortable. No episode of diarrhea at this time, denies any N&V. Safety and comfort measures maintained, call light within reach, seizure precautions in placed, no seizure activities noted.
[2020-08-23] VITALS (7 sets, daily range): BP systolic 125–163; BP diastolic 76–102
[2020-08-23] MEDS: Morphine Sulfate 2mg/ml Inj(IV/IM USE ONLY) IVP PRN ×5 (04:09→23:19)
--- NOTE | 2020-08-23 08:12 | NUR ---
NURSE HAND-OFF REPORT: Important Events on Shift: Pt cont c/o back pain which radiates to neck and what she described as chest (epigastric). Medicated with morphine IVPX2, norcoxX1, mylanta X1 Patient Status: Diet: Pending Orders: Pending Results/Labs: Pending MD notification: Latest Vital Signs: Temperature 98.1 , Pulse 88 , B/P 146 /89 , Respiratory Rate 20 , O2 SAT 99 , Room Air, O2 Flow Rate . Vital Sign Comment: EKG Rhythm: Sinus Rhythm Rhythm change?: N MD Notified?: - MD Response: Latest Cook Fall Score: 85 Fall Risk: High Risk Safety Measures: Call light Within Reach, Bed Alarm Zone 1, Side Rails Side Rails x3, Bed position Low and Locked. Fall Precautions: Yellow Socks Yellow Gown Door Sign Patient Fall Education Report given to .
--- NOTE | 2020-08-23 08:16 | NUR ---
NURSE NOTES: Received patient report from ITZ Baker. Patient is AO x 3 awake and able to make needs known. Patient shows no signs of distress but does complain of 7/10 pain on her back. IV is intact and patent running D5 NS w/20 meq @100 cc/hr. Patient is on room air and shows no signs of respiratory distress at the time. Patient is on clear liquid diet but says she still had episode of vomiting this morning. Will continue to monitor so we can advance diet. Bed is in the lowest position, call light is within reach, side rails up x3. Will continue to monitor.
[2020-08-23] MEDS: levETIRAcetam 500mg/5ml Liquid NG SCH ×2 (08:26→20:25)
[2020-08-23] MEDS: Pantoprazole Inj IVP SCH ×2 (08:26→20:24)
[2020-08-23] MEDS: Valproic Acid 250mg/5ml Liquid ORAL SCH ×2 (08:26→20:25)
[2020-08-23] MEDS: Dorzolamide 2% 10ml Btl BOTH EYES SCH ×3 (08:28→17:03)
[2020-08-23 08:44] LABS: BASOPHILS % (AUTO) 1.1 % (0.0-2.0); EOSINOPHILS % (AUTO) 0.5 % (0.0-3.0); HEMATOCRIT 39.2 % (37.0-47.0); HEMOGLOBIN 13.1 G/DL (12.0-16.0); MEAN CORPUSCULAR VOLUME 92 FL (80-99); MONOCYTES % (AUTO) 7.6 % (1.0-10.0); NEUTROPHILS % (AUTO) 75.8 % (45.0-75.0); PLATELET COUNT 312 K/UL (150-450); RED BLOOD COUNT 4.26 M/UL (4.20-5.40); RED CELL DISTRIBUTION WIDTH 13.7 % (11.6-14.8); WHITE BLOOD COUNT 6.4 K/UL (4.8-10.8)
[2020-08-23 09:01] LABS: ALANINE AMINOTRANSFERASE 15 U/L (12-78); ALBUMIN 3.1 G/DL (3.4-5.0); ALBUMIN/GLOBULIN RATIO 0.8 (1.0-2.7); ALKALINE PHOSPHATASE 68 U/L (46-116); ANION GAP 9 mmol/L (5-15); ASPARTATE AMINO TRANSFERASE 20 U/L (15-37); BILIRUBIN,TOTAL 0.6 MG/DL (0.2-1.0); BLOOD UREA NITROGEN 7 mg/dL (7-18); CALCIUM 7.8 MG/DL (8.5-10.1); CARBON DIOXIDE 26 MMOL/L (21-32); CHLORIDE 103 MMOL/L (98-107); CREATININE 0.8 MG/DL (0.55-1.30); POTASSIUM 3.1 MMOL/L (3.5-5.1); SODIUM 138 MMOL/L (136-145)
--- NOTE | 2020-08-23 09:01 | NUR ---
CASE MANAGEMENT:REVIEW 08/23/20 SI: NAUSEA/VOMITING/DIARRHEA HYPOKALEMIA. COVID 19 (GROUND GLASS DENSITIES IN BOTH LUNG BASES) 98.1 88 20 146/89 99% ON RA IS: IVF@100/HR IV PROTONIX Q12 NORVASC PO QD DEPAKENE PO Q12 KEPPRA PO Q12 IV MORPHINE Q4HRS PRN NORCO PO Q6HRS PRN : TELEMETRY STATUS DCP: FROM HOME PLAN: ADVANCING DIET PAIN MANAGEMENT (ABDOMINAL PAIN)
[2020-08-23] MEDS ORDERED: HydrALAZINE 25mg tab ORAL PRN (13:30)
--- NOTE | 2020-08-23 13:35 | General Progress Note ---
Subjective ROS Limited/Unobtainable: No Constitutional: Reports: malaise, weakness HEENT: Reports: no symptoms Cardiovascular: Reports: no symptoms Respiratory: Reports: no symptoms Gastrointestinal/Abdominal: Reports: abdominal pain, nausea, vomiting Genitourinary: Reports: no symptoms Neurologic/Psychiatric: Reports: anxiety Endocrine: Reports: no symptoms Hematologic/Lymphatic: Reports: anemia Allergies: Coded Allergies: No Known Allergies (Unverified , 05/05/19) All Systems: reviewed and negative except above Subjective tolerating clears. +abd pain. CT negative. Objective Last 24 Hour Vital Signs Date Time Temp Pulse Resp B/P (MAP) Pulse Ox O2 Delivery O2 Flow Rate FiO2 08/23/20 12:00 97.8 83 18 156/99 (118) 99 08/23/20 09:00 Room Air 08/23/20 08:57 98.1 08/23/20 08:27 96 163/102 08/23/20 08:00 97.7 96 18 163/102 (122) 100 08/23/20 08:00 93 08/23/20 04:30 98.1 88 20 146/89 (108) 99 08/23/20 04:27 69 08/23/20 02:54 98.1 08/23/20 00:55 98.1 88 20 141/77 (98) 96 08/23/20 00:30 70 08/22/20 22:57 98.1 08/22/20 21:30 Room Air 08/22/20 20:30 115 08/22/20 20:00 98.4 89 20 146/80 (102) 100 08/22/20 16:00 97.7 81 20 138/88 (105) 98 08/22/20 15:42 78 Intake and Output 08/22/20 08/23/20 19:00 07:00 Intake Total 1100 ml 1160 ml Balance 1100 ml 1160 ml Intake Oral 160 ml IV Total 1100 ml Other 1000 ml # Voids 2 4 Laboratory Tests 08/23/20 08:00: White Blood Count 6.4, Red Blood Count 4.26, Hemoglobin 13.1, Hematocrit 39.2, Mean Corpuscular Volume 92, Mean Corpuscular Hemoglobin 30.7, Mean Corpuscular Hemoglobin Concent 33.4, Red Cell Distribution Width 13.7, Platelet Count 312, Mean Platelet Volume 8.1, Neutrophils (%) (Auto) 75.8H, Lymphocytes (%) (Auto) 15.0L, Monocytes (%) (Auto) 7.6, Eosinophils (%) (Auto) 0.5, Basophils (%) (Auto) 1.1, Sodium Level 138, Potassium Level 3.1L, Chloride Level 103, Carbon Dioxide Level 26, Anion Gap 9, Blood Urea Nitrogen 7, Creatinine 0.8, Estimat Glomerular Filtration Rate > 60, Glucose Level 126H, Calcium Level 7.8L, Total Bilirubin 0.6, Aspartate Amino Transf (AST/SGOT) 20, Alanine Aminotransferase (ALT/SGPT) 15, Alkaline Phosphatase 68, Total Protein 7.2, Albumin 3.1L, Globulin 4.1, Albumin/Globulin Ratio 0.8L Height (Feet): 5 Height (Inches): 7.00 Weight (Pounds): 205 Objective General Appearance: WD/WN, no apparent distress Cardiovascular: regular rhythm Respiratory/Chest: lungs clear Abdomen: normal bowel sounds, non tender, soft, no organomegaly, no mass Edema: no edema noted Leg (L), no edema noted Leg (R) Assessment/Plan Problem List: (1) Nausea vomiting and diarrhea ICD Codes: R11.2 - Nausea with vomiting, unspecified; R19.7 - Diarrhea, unspecified SNOMED: 7965684 (2) Hypokalemia ICD Codes: E87.6 - Hypokalemia SNOMED: 41242013 (3) COVID-19 ICD Codes: U07.1 - COVID-19 SNOMED: 841303549 Status: stable, progressing Assessment/Plan: decrease IV hydration replace k Follow-up stool cultures Protonix twice daily Advance diet Monitor labs Nash Gayle MD Aug 23, 2020 13:35
[2020-08-23] MEDS: Lisinopril 10mg tab ORAL SCH (13:44)
--- NOTE | 2020-08-23 15:29 | NUR ---
NURSE NOTES: Patient continues to complain of nausea even though she is receiving Zofran Q4. Dr. Gayle gave new order of Reglan 10 mg IVP TID.
[2020-08-23] MEDS: Metoclopramide 10mg/2ml Inj IVP PRN ×2 (15:41→23:19)
--- NOTE | 2020-08-23 17:58 | Cardiology Progress Note ---
Subjective DATE OF SERVICE: Aug 22, 2020 (late entry due to computer malfxn) c/o chest pain and abdominal discomfort. Monitor: sinus with sinus tachycardia Nausea, with no emesis today. Objective Last 24 Hour Vital Signs reviewed RHYTHM: NSR, ST LUNGS: lungs clear bilaterally CARDIAC: regular rhythm, normal S1 and S2, rapid rate ABDOMEN: normal bowel sounds, soft, no organomegaly, distended EXTREMITIES: non-tender, no calf tenderness, normal capillary refill, trace edema Laboratory Tests reviewed Assessment/Plan Assessment/Plan Hypertension Non-cardiac chest pain Multiple myeloma Hypokalemia Nausea and vomiting Seizure D/O NIDDM Secondary sinus tachycardia IVF Anti-emetics Pain control Replace potassium; check magnesium Adjust IVF Check 2D echo Continue telemetry Colin Lake MD Aug 23, 2020 17:58
--- NOTE | 2020-08-23 18:02 | Cardiology Progress Note ---
Subjective DATE OF SERVICE: Aug 23, 2020 Still has abdominal discomfort. Monitor: sinus with sinus tachycardia Nausea, with no emesis today. Monitor: sinus/sinus tachycardia Objective Last 24 Hour Vital Signs Date Time Temp Pulse Resp B/P (MAP) Pulse Ox O2 Delivery O2 Flow Rate FiO2 08/23/20 17:03 123 159/95 08/23/20 16:00 97.7 100 18 159/95 (116) 99 08/23/20 16:00 123 08/23/20 13:44 156/99 08/23/20 13:44 65 156/99 08/23/20 13:33 98.1 08/23/20 12:00 97.8 83 18 156/99 (118) 99 08/23/20 12:00 65 08/23/20 09:00 Room Air 08/23/20 08:57 98.1 08/23/20 08:27 96 163/102 08/23/20 08:00 97.7 96 18 163/102 (122) 100 08/23/20 08:00 93 08/23/20 04:30 98.1 88 20 146/89 (108) 99 08/23/20 04:27 69 08/23/20 02:54 98.1 08/23/20 00:55 98.1 88 20 141/77 (98) 96 08/23/20 00:30 70 08/22/20 22:57 98.1 08/22/20 21:30 Room Air 08/22/20 20:30 115 08/22/20 20:00 98.4 89 20 146/80 (102) 100 RHYTHM: NSR, ST LUNGS: lungs clear bilaterally CARDIAC: regular rhythm, normal S1 and S2, rapid rate ABDOMEN: normal bowel sounds, soft, no organomegaly, distended EXTREMITIES: non-tender, no calf tenderness, normal capillary refill, trace edema Laboratory Tests Test 08/23/20 08:00 White Blood Count 6.4 K/UL (4.8-10.8) Red Blood Count 4.26 M/UL (4.20-5.40) Hemoglobin 13.1 G/DL (12.0-16.0) Hematocrit 39.2 % (37.0-47.0) Mean Corpuscular Volume 92 FL (80-99) Mean Corpuscular Hemoglobin 30.7 PG (27.0-31.0) Mean Corpuscular Hemoglobin Concent 33.4 G/DL (32.0-36.0) Red Cell Distribution Width 13.7 % (11.6-14.8) Platelet Count 312 K/UL (150-450) Mean Platelet Volume 8.1 FL (6.5-10.1) Neutrophils (%) (Auto) 75.8 % (45.0-75.0) H Lymphocytes (%) (Auto) 15.0 % (20.0-45.0) L Monocytes (%) (Auto) 7.6 % (1.0-10.0) Eosinophils (%) (Auto) 0.5 % (0.0-3.0) Basophils (%) (Auto) 1.1 % (0.0-2.0) Sodium Level 138 MMOL/L (136-145) Potassium Level 3.1 MMOL/L (3.5-5.1) L Chloride Level 103 MMOL/L (98-107) Carbon Dioxide Level 26 MMOL/L (21-32) Anion Gap 9 mmol/L (5-15) Blood Urea Nitrogen 7 mg/dL (7-18) Creatinine 0.8 MG/DL (0.55-1.30) Estimat Glomerular Filtration Rate > 60 mL/min (>60) Glucose Level 126 MG/DL (74-106) H Calcium Level 7.8 MG/DL (8.5-10.1) L Total Bilirubin 0.6 MG/DL (0.2-1.0) Aspartate Amino Transf (AST/SGOT) 20 U/L (15-37) Alanine Aminotransferase (ALT/SGPT) 15 U/L (12-78) Alkaline Phosphatase 68 U/L (46-116) Total Protein 7.2 G/DL (6.4-8.2) Albumin 3.1 G/DL (3.4-5.0) L Globulin 4.1 g/dL Albumin/Globulin Ratio 0.8 (1.0-2.7) L Assessment/Plan Assessment/Plan Hypertension/HHD now uncontrolled Non-cardiac chest pain Multiple myeloma Hypokalemia Nausea and vomiting Seizure D/O NIDDM Secondary sinus tachycardia Advance antiHTN meds Anti-emetics Pain control Replace potassium; check magnesium Adjust IVF Continue telemetry Colin Lake MD Aug 23, 2020 18:02
--- NOTE | 2020-08-23 18:59 | Consultation ---
DATE OF CONSULTATION: 08/21/2020 CARDIOLOGY CONSULTATION CONSULTING PHYSICIAN: Colin Lake MD. REFERRING PHYSICIAN: Nash Gayle MD. REASON FOR CONSULTATION: Chest pain. HISTORY OF PRESENT ILLNESS: This is a 60-year-old female with multiple myeloma. She has had intermittent nausea, vomiting, and diarrhea for the past week. She has also had mid epigastric abdominal pain as well as chest discomfort. She was treated in June for COVID-19. She has since recovered. She has had difficulty maintaining high adequate hydration due to the symptoms noted over the past week. PAST MEDICAL HISTORY: Hypertension, type 2 diabetes mellitus, seizure disorder, prior abdominal surgeries. MEDICATIONS: Not known. ALLERGIES: None. FAMILY HISTORY: Noncontributory. SOCIAL HISTORY: Negative for smoking, alcohol, or substance abuse. REVIEW OF SYSTEMS: No known history of myocardial infarction, irregular heartbeats, rheumatic heart disease, or endocarditis. No known history of heart failure or abnormal blood clotting/DVT. PHYSICAL EXAMINATION: VITAL SIGNS: Blood pressure 156/82, pulse 88, respirations 21. Afebrile. HEENT: Conjunctivae are pink. Mucous membranes dry. NECK: Supple. LUNGS: Diminished breath sounds. No wheezing. CHEST: Chest wall tender to palpation. CARDIAC: Regular rhythm and rate. Normal S1, S2 with no murmur. ABDOMEN: Soft. Tenderness noted in the midepigastric region. No guarding. EXTREMITIES: No edema or calf tenderness. LABORATORY DATA: Notable for potassium 2.6, bicarb 24, creatinine 0.7. Urinalysis with 2 white cells. White count 7, hemoglobin 12. Troponin negative. IMPRESSION: 1. Noncardiac chest pain. 2. Nausea, vomiting and diarrhea with associated abdominal pain, possibly due to gastroenteritis. 3. COVID-19 recovered. 4. Hypertension with hypertensive heart disease and elevated blood pressure. 5. History of type 2 diabetes mellitus. 6. Hypokalemia. PLAN: 1. Antiemetics. 2. Cardiac monitoring. 3. IV fluid. 4. Volume resuscitation. 5. Potassium replacement. 6. Check magnesium. 7. Echocardiogram. 8. Titrate antihypertensives based on clinical parameters. 9. No additional cardiovascular interventions presently indicated. Colin Lake M.D. DR: AMITA JOB#: [id number] CC:
--- NOTE | 2020-08-23 19:23 | NUR ---
NURSE HAND-OFF REPORT: Important Events on Shift:[Reglan given to control nausea. Patient continues to ask for Morphine.] Patient Status: [Full code] Diet: [Soft] Pending Orders: [] Pending Results/Labs:[] Pending MD notification:[] Latest Vital Signs: Temperature 97.7 , Pulse 123 , B/P 159 /95 , Respiratory Rate 18 , O2 SAT 99 , Room Air, O2 Flow Rate . Vital Sign Comment: [] EKG Rhythm: Sinus Tachycardia Rhythm change?: N MD Notified?: - MD Response: Latest Cook Fall Score: 85 Fall Risk: High Risk Safety Measures: Call light Within Reach, Bed Alarm Zone 1, Side Rails Side Rails x3, Bed position Low and Locked. Fall Precautions: Yellow Socks Yellow Gown Door Sign Patient Fall Education Report given to [ITZ Baker].
--- NOTE | 2020-08-23 20:00 | NUR ---
NURSE NOTES: Assumed pt's care at 1900, report received from ITZ Kelsey. Pt is aox4, no acute distress noted, respirations even and unlabored. Cont IVF, no sings of infiltration noted. Able to make needs known. Safety and comfort measures maintained.
[2020-08-24] MEDS: Morphine Sulfate 2mg/ml Inj(IV/IM USE ONLY) IVP PRN ×4 (03:36→20:58)
[2020-08-24 03:48] VITALS: BP 130/85
--- NOTE | 2020-08-24 04:18 | NUR ---
No episodes of vomiting noted. Medicated X2 for pain with morphine IVP, & reglan IVP X1 with positive effects. No BM this shift, unable to obtain stool specimen. IVF cont. No acute distress noted. Pt tends to be getting OOB with no assistance, gait is unsteady, encouraged pt to wait for assistance to prevent any falls. Safety and comfort measures maintained, call light within reach, bed alarm on.
--- NOTE | 2020-08-24 07:00 | NUR ---
NURSE NOTES: Patient received from ITZ Baker. Patient observed to be awake, alert and oriented x3. Seen ambulating with walker to restroom. Currently on room air, no s/sx of SOB/Distress or complains of any pain. Patient complaining of stomach discomfort and episodes of diarrhea. Patient with no iv access at this time, will try at a later time. Bed placed on lowest and locked, call light placed within reach and will continue to monitor for any changes in patient's condition.
--- NOTE | 2020-08-24 07:42 | NUR ---
NURSE HAND-OFF REPORT: Important Events on Shift: Medicated pt X2 with morphine, X1 with reglan. No episode of emesis, no BM. Seen by hospitalist today, okay to dc home today. Patient Status: Diet: Pending Orders: Pending Results/Labs: Pending MD notification: Latest Vital Signs: Temperature 97.2 , Pulse 110 , B/P 130 /85 , Respiratory Rate 18 , O2 SAT 99 , Room Air, O2 Flow Rate . Vital Sign Comment: EKG Rhythm: Sinus Tachycardia Rhythm change?: N MD Notified?: - MD Response: Latest Cook Fall Score: 85 Fall Risk: High Risk Safety Measures: Call light Within Reach, Bed Alarm Zone 1, Side Rails Side Rails x3, Bed position Low and Locked. Fall Precautions: Yellow Socks Yellow Gown Door Sign Patient Fall Education Report given to .
[2020-08-24 07:46] LABS: ALANINE AMINOTRANSFERASE 15 U/L (12-78); ALBUMIN 3.4 G/DL (3.4-5.0); ALBUMIN/GLOBULIN RATIO 0.9 (1.0-2.7); ALKALINE PHOSPHATASE 71 U/L (46-116); ANION GAP 11 mmol/L (5-15); ASPARTATE AMINO TRANSFERASE 18 U/L (15-37); BILIRUBIN,TOTAL 0.5 MG/DL (0.2-1.0); BLOOD UREA NITROGEN 7 mg/dL (7-18); CALCIUM 8.5 MG/DL (8.5-10.1); CARBON DIOXIDE 24 MMOL/L (21-32); CHLORIDE 98 MMOL/L (98-107); CREATININE 0.9 MG/DL (0.55-1.30); POTASSIUM 3.2 MMOL/L (3.5-5.1); SODIUM 133 MMOL/L (136-145)
[2020-08-24 08:00] VITALS: BP 127/78
[2020-08-24] MEDS: Pantoprazole Inj IVP SCH ×2 (08:30→20:46)
[2020-08-24] MEDS: Dorzolamide 2% 10ml Btl BOTH EYES SCH ×3 (08:31→17:43)
[2020-08-24] MEDS: Valproic Acid 250mg/5ml Liquid ORAL SCH ×2 (08:31→20:47)
[2020-08-24] MEDS: levETIRAcetam 500mg/5ml Liquid NG SCH ×2 (08:31→20:46)
[2020-08-24] MEDS: Lisinopril 10mg tab ORAL SCH (08:31)
[2020-08-24] MEDS: Lomotil 2.5mg tab ORAL PRN (08:31)
[2020-08-24 12:00] VITALS: BP 134/87
--- NOTE | 2020-08-24 13:01 | General Progress Note ---
Subjective ROS Limited/Unobtainable: No Constitutional: Reports: malaise, weakness HEENT: Reports: no symptoms Cardiovascular: Reports: chest pain Respiratory: Reports: no symptoms Gastrointestinal/Abdominal: Reports: no symptoms, abdominal pain, diarrhea Genitourinary: Reports: no symptoms Neurologic/Psychiatric: Reports: no symptoms Endocrine: Reports: no symptoms Hematologic/Lymphatic: Reports: anemia Allergies: Coded Allergies: No Known Allergies (Unverified , 05/05/19) All Systems: reviewed and negative except above Subjective Tolerating full liquid. having some diarrhea this morning. No nausea or vomiting. Low K noted. Objective Last 24 Hour Vital Signs Date Time Temp Pulse Resp B/P (MAP) Pulse Ox O2 Delivery O2 Flow Rate FiO2 08/24/20 12:00 98.1 115 18 134/87 (103) 98 08/24/20 12:00 93 08/24/20 09:00 Room Air 08/24/20 08:31 113 127/78 08/24/20 08:31 127/78 08/24/20 08:00 142 08/24/20 08:00 97.2 113 18 127/78 (94) 95 08/24/20 04:06 97.2 08/24/20 04:00 110 08/24/20 03:48 97.2 98 18 130/85 (100) 99 08/23/20 23:49 97.2 08/23/20 23:38 97.2 100 18 146/84 (104) 99 08/23/20 21:30 Room Air 08/23/20 20:51 93 08/23/20 20:43 96.8 100 18 125/76 (92) 100 08/23/20 17:34 97.7 08/23/20 17:03 123 159/95 08/23/20 16:00 97.7 100 18 159/95 (116) 99 08/23/20 16:00 123 08/23/20 13:44 156/99 08/23/20 13:44 65 156/99 08/23/20 13:33 98.1 Intake and Output 08/23/20 08/24/20 19:00 07:00 Intake Total 990 ml 240 ml Output Total 700 ml Balance 290 ml 240 ml Intake Oral 990 ml 240 ml Output Urine Total 700 ml # Voids 4 Laboratory Tests 2/28/21 07:21: Sodium Level 133L, Potassium Level 3.2L, Chloride Level 98, Carbon Dioxide Level 24, Anion Gap 11, Blood Urea Nitrogen 7, Creatinine 0.9, Estimat Glomerular Filtration Rate > 60, Glucose Level 124H, Calcium Level 8.5, Magnesium Level 2.1, Total Bilirubin 0.5, Aspartate Amino Transf (AST/SGOT) 18, Alanine Aminotransferase (ALT/SGPT) 15, Alkaline Phosphatase 71, Total Protein 7.2, Albumin 3.4, Globulin 3.8, Albumin/Globulin Ratio 0.9L Height (Feet): 5 Height (Inches): 7.00 Weight (Pounds): 205 Objective General Appearance: WD/WN, no apparent distress Cardiovascular: regular rhythm Respiratory/Chest: lungs clear Abdomen: normal bowel sounds, non tender, soft, no organomegaly, no mass Edema: no edema noted Leg (L), no edema noted Leg (R) Assessment/Plan Problem List: (1) Nausea vomiting and diarrhea ICD Codes: R11.2 - Nausea with vomiting, unspecified; R19.7 - Diarrhea, unspecified SNOMED: 6902246 (2) Hypokalemia ICD Codes: E87.6 - Hypokalemia SNOMED: 16619267 (3) COVID-19 ICD Codes: U07.1 - COVID-19 SNOMED: 508333899 Status: stable, progressing Assessment/Plan: ivf replace k Follow-up stool cultures check cdiff pain rx Protonix twice daily Advance diet Monitor labs pt/ot Nash Gayle MD Aug 24, 2020 13:01
[2020-08-24] MEDS ORDERED: Omnipaque-300 100ml vial INJ PRN (13:15)
[2020-08-24] MEDS ORDERED: oxyCODONE 5mg IR tab ORAL PRN (13:30)
[2020-08-24 16:00] VITALS: BP 133/68
--- NOTE | 2020-08-24 18:19 | Cardiology Progress Note ---
Subjective DATE OF SERVICE: Aug 24, 2020 Less abdominal discomfort. Monitor: sinus with sinus tachycardia Nausea, with no emesis today. Monitor: sinus/sinus tachycardia Objective Last 24 Hour Vital Signs Date Time Temp Pulse Resp B/P (MAP) Pulse Ox O2 Delivery O2 Flow Rate FiO2 08/24/20 16:00 78 08/24/20 16:00 97.9 95 18 133/68 (89) 100 08/24/20 12:00 98.1 115 18 134/87 (103) 98 08/24/20 12:00 93 08/24/20 09:00 Room Air 08/24/20 08:31 113 127/78 08/24/20 08:31 127/78 08/24/20 08:00 142 08/24/20 08:00 97.2 113 18 127/78 (94) 95 08/24/20 04:06 97.2 08/24/20 04:00 110 08/24/20 03:48 97.2 98 18 130/85 (100) 99 08/23/20 23:49 97.2 08/23/20 23:38 97.2 100 18 146/84 (104) 99 08/23/20 21:30 Room Air 08/23/20 20:51 93 08/23/20 20:43 96.8 100 18 125/76 (92) 100 RHYTHM: NSR, ST LUNGS: lungs clear bilaterally CARDIAC: regular rhythm, normal S1 and S2, rapid rate ABDOMEN: normal bowel sounds, soft, no organomegaly, distended EXTREMITIES: non-tender, no calf tenderness, normal capillary refill, trace edema Laboratory Tests Test 08/24/20 07:21 Sodium Level 133 MMOL/L (136-145) L Potassium Level 3.2 MMOL/L (3.5-5.1) L Chloride Level 98 MMOL/L (98-107) Carbon Dioxide Level 24 MMOL/L (21-32) Anion Gap 11 mmol/L (5-15) Blood Urea Nitrogen 7 mg/dL (7-18) Creatinine 0.9 MG/DL (0.55-1.30) Estimat Glomerular Filtration Rate > 60 mL/min (>60) Glucose Level 124 MG/DL (74-106) H Calcium Level 8.5 MG/DL (8.5-10.1) Magnesium Level 2.1 MG/DL (1.8-2.4) Total Bilirubin 0.5 MG/DL (0.2-1.0) Aspartate Amino Transf (AST/SGOT) 18 U/L (15-37) Alanine Aminotransferase (ALT/SGPT) 15 U/L (12-78) Alkaline Phosphatase 71 U/L (46-116) Total Protein 7.2 G/DL (6.4-8.2) Albumin 3.4 G/DL (3.4-5.0) Globulin 3.8 g/dL Albumin/Globulin Ratio 0.9 (1.0-2.7) L Assessment/Plan Assessment/Plan Hypertension/HHD now uncontrolled Non-cardiac chest pain Multiple myeloma Hypokalemia Nausea and vomiting Seizure D/O NIDDM Secondary sinus tachycardia Advance antiHTN meds Anti-emetics Pain control Replace potassium Adjust IVF Continue telemetry Colin Lake MD Aug 24, 2020 18:19
--- NOTE | 2020-08-24 19:19 | NUR ---
NURSE HAND-OFF REPORT: Important Events on Shift:Pain and nausea management Patient Status: stable Diet: soft diet Pending Orders: n.a Pending Results/Labs:cdiff Pending MD notification:n.a Latest Vital Signs: Temperature 97.9 , Pulse 95 , B/P 133 /68 , Respiratory Rate 18 , O2 SAT 100 , Room Air, O2 Flow Rate . Vital Sign Comment: stable EKG Rhythm: sinus tachy-sinus rhythm Rhythm change?: N MD Notified?: - MD Response: Latest Cook Fall Score: 85 Fall Risk: High Risk Safety Measures: Call light Within Reach, Bed Alarm Zone 1, Side Rails Side Rails x3, Bed position Low and Locked. Fall Precautions: Yellow Socks Yellow Gown Door Sign Patient Fall Education Report given to ITZ Baker.
[2020-08-24 20:00] VITALS: BP 151/88
--- NOTE | 2020-08-24 20:10 | NUR ---
Patient received from ITZ Baker. Patient observed to be awake, alert and oriented x3. Seen ambulating with walker to restroom. Currently on room air, no s/sx of SOB/Distress or complains of any pain. Patient complaining of stomach discomfort, chest pain, back pain. Patient with no iv access at this time, will try at a later time. Bed placed on lowest and locked, call light placed within reach and will continue to monitor for any changes in patient's condition.
[2020-08-25] VITALS (7 sets, daily range): BP systolic 130–163; BP diastolic 75–91
[2020-08-25] MEDS: Morphine Sulfate 2mg/ml Inj(IV/IM USE ONLY) IVP PRN ×4 (03:53→18:59)
--- NOTE | 2020-08-25 06:00 | NUR ---
NURSE HAND-OFF REPORT: Important Events on Shift: Patient Status: Diet: patient complained of pain, Medicated pt X2 with morphine, X1 with zofran.
--- NOTE | 2020-08-25 08:13 | NUR ---
NURSE NOTES: pt. is using commode at this time. Aox4, able to express needs. 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 Bed is locked and in lowest position. Call light is within reach.
[2020-08-25 09:28] LABS: ALANINE AMINOTRANSFERASE 14 U/L (12-78); ALBUMIN 3.4 G/DL (3.4-5.0); ALBUMIN/GLOBULIN RATIO 0.9 (1.0-2.7); ALKALINE PHOSPHATASE 73 U/L (46-116); ANION GAP 9 mmol/L (5-15); ASPARTATE AMINO TRANSFERASE 19 U/L (15-37); BILIRUBIN,TOTAL 0.7 MG/DL (0.2-1.0); BLOOD UREA NITROGEN 9 mg/dL (7-18); CALCIUM 9.2 MG/DL (8.5-10.1); CARBON DIOXIDE 27 MMOL/L (21-32); CHLORIDE 101 MMOL/L (98-107); CREATININE 0.8 MG/DL (0.55-1.30); POTASSIUM 3.4 MMOL/L (3.5-5.1); SODIUM 136 MMOL/L (136-145)
[2020-08-25] MEDS: Lomotil 2.5mg tab ORAL PRN (10:24)
[2020-08-25] MEDS: Pantoprazole Inj IVP SCH (10:29)
[2020-08-25] MEDS: Valproic Acid 250mg/5ml Liquid ORAL SCH ×2 (10:29→20:06)
[2020-08-25] MEDS: levETIRAcetam 500mg/5ml Liquid NG SCH ×2 (10:34→20:06)
[2020-08-25] MEDS: Lisinopril 10mg tab ORAL SCH (10:34)
[2020-08-25] MEDS: Dorzolamide 2% 10ml Btl BOTH EYES SCH ×3 (10:35→18:03)
--- NOTE | 2020-08-25 11:22 | NUR ---
NURSE NOTES: morphine order from 08/21 at 1845, is an ED order; cleared message by doing non admit. but unsure if ED gave medication.
[2020-08-25] MEDS: Metoclopramide 10mg/2ml Inj IVP PRN (12:47)
--- NOTE | 2020-08-25 15:39 | General Progress Note ---
Subjective ROS Limited/Unobtainable: No Constitutional: Reports: malaise, weakness HEENT: Reports: no symptoms Cardiovascular: Reports: chest pain Respiratory: Reports: no symptoms Gastrointestinal/Abdominal: Reports: abdominal pain, diarrhea, vomiting Genitourinary: Reports: no symptoms Neurologic/Psychiatric: Reports: no symptoms Endocrine: Reports: no symptoms Hematologic/Lymphatic: Reports: no symptoms Allergies: Coded Allergies: No Known Allergies (Unverified , 05/05/19) All Systems: reviewed and negative except above Subjective No overnight events. Had episodes of vomiting and current diarrhea. Continued abdominal pain. CT scan of the abdomen reviewed. CT of the chest pending. Staff has been unable to collect stool for stool cultures. Discussed with patient's oncologist. Some of the patient's outpatient chemo can cause nausea vomiting diarrhea. Objective Last 24 Hour Vital Signs Date Time Temp Pulse Resp B/P (MAP) Pulse Ox O2 Delivery O2 Flow Rate FiO2 08/25/20 10:34 130/89 08/25/20 10:33 125 130/89 08/25/20 09:18 97.7 125 20 130/89 (103) 99 08/25/20 09:00 Room Air 08/25/20 08:00 97.7 125 20 130/89 (103) 99 08/25/20 08:00 108 08/25/20 04:00 102 08/25/20 04:00 98.4 87 18 146/88 (107) 100 08/25/20 00:00 78 08/25/20 00:00 98.7 87 20 156/91 (112) 100 08/24/20 21:00 Room Air 08/24/20 20:00 113 08/24/20 20:00 98.0 99 20 151/88 (109) 100 08/24/20 16:00 78 08/24/20 16:00 97.9 95 18 133/68 (89) 100 Intake and Output 08/24/20 08/25/20 19:00 07:00 # Voids 3 # Bowel Movements 3 1 Laboratory Tests 08/25/20 08:01: Sodium Level 136, Potassium Level 3.4L, Chloride Level 101, Carbon Dioxide Level 27, Anion Gap 9, Blood Urea Nitrogen 9, Creatinine 0.8, Estimat Glomerular Filtration Rate > 60, Glucose Level 126H, Calcium Level 9.2, Total Bilirubin 0.7, Aspartate Amino Transf (AST/SGOT) 19, Alanine Aminotransferase (ALT/SGPT) 14, Alkaline Phosphatase 73, Total Protein 7.4, Albumin 3.4, Globulin 4.0, Albumin/Globulin Ratio 0.9L Height (Feet): 5 Height (Inches): 7.00 Weight (Pounds): 205 Objective General Appearance: WD/WN, no apparent distress Cardiovascular: regular rhythm Respiratory/Chest: lungs clear Abdomen: normal bowel sounds, non tender, soft, no organomegaly, no mass Edema: no edema noted Leg (L), no edema noted Leg (R) Assessment/Plan Problem List: (1) Nausea vomiting and diarrhea ICD Codes: R11.2 - Nausea with vomiting, unspecified; R19.7 - Diarrhea, unspecified SNOMED: 6586372 (2) Hypokalemia ICD Codes: E87.6 - Hypokalemia SNOMED: 27900746 (3) COVID-19 ICD Codes: U07.1 - COVID-19 SNOMED: 462113481 Status: stable, progressing Assessment/Plan: ivf replace k Follow-up stool cultures check cdiff pain rx stress ulcer prophylaxis add metoprolol Advance diet Monitor labs pt/ot Nash Gayle MD Aug 25, 2020 15:39
--- NOTE | 2020-08-25 16:57 | Diagnostic Imaging Report ---
Clinical Indication: Chest pain Technique: IV administration nonionic contrast. Spiral acquisition obtained through the chest. Multiplanar reconstructions generated. Total dose length product 341 mGycm. CTDIvol(s) 4, 4, 115, 7 mGy. Dose reduction achieved using automated exposure control Comparison: none Findings: Minimal hazy opacities bordering on groundglass opacities at both lung bases are demonstrated, nonspecific but likely representing atelectatic changes. No dense consolidation. No effusions, masses, or nodules demonstrated. The heart size is normal. No pericardial effusion. There is a small sliding-type hiatal hernia and equivocally slight distal esophageal wall thickening. No mediastinal or hilar mass or adenopathy. Unremarkable thyroid. The bones demonstrate markedly heterogeneous trabecular pattern and evidence of osteolytic lesions involving multiple vertebral segments, particularly striking at T4, T5, T6, T10 and T11. Included upper abdominal anatomy is unremarkable. Impression: Minimal hazy pulmonary parenchymal opacities at the lung bases,, also described on abdominal CT scan of 08/21/2020. Appearance is nonspecific, could represent atypical pneumonia, dependent atelectatic change, mild basilar edema, among other possibilities. Small hiatal hernia. Equivocal slight distal esophageal wall thickening could indicate mild esophagitis Multiple osseous lucencies, likely related to described clinical history of multiple myeloma The CT scanner at [facility] is accredited by the [employer] and the scans are performed using protocols designed to limit radiation exposure to as low as reasonably achievable to attain images of sufficient resolution adequate for diagnostic evaluation.
--- NOTE | 2020-08-25 18:30 | NUR ---
Nursing notes: Doctor Lake and RN spoke to pt and finally she understood that she needed to release all medication to pharmacy. Per doctor Lake it is ok to give pt IV morphine now, since she no longer has her own pills in her purse.
--- NOTE | 2020-08-25 18:36 | NUR ---
NURSE NOTES: pt. showed me what she claims to be Morphine pills and oxycodone. I don't fill comfortable giving IV morphine because I'm not sure if she took some pills already or not. Pt is refusing to send pills to pharmacy for safe keeping.
--- NOTE | 2020-08-25 19:06 | Cardiology Progress Note ---
Subjective DATE OF SERVICE: Aug 25, 2020 Still has abdominal pain. Anxious. Monitor: sinus with sinus tachycardia Nausea, with no emesis today. Objective Last 24 Hour Vital Signs Date Time Temp Pulse Resp B/P (MAP) Pulse Ox O2 Delivery O2 Flow Rate FiO2 08/25/20 17:44 90 150/91 08/25/20 10:34 130/89 08/25/20 10:33 125 130/89 08/25/20 09:18 97.7 125 20 130/89 (103) 99 08/25/20 09:00 Room Air 08/25/20 08:00 97.7 125 20 130/89 (103) 99 08/25/20 08:00 108 08/25/20 04:00 102 08/25/20 04:00 98.4 87 18 146/88 (107) 100 08/25/20 00:00 78 08/25/20 00:00 98.7 87 20 156/91 (112) 100 08/24/20 21:00 Room Air 08/24/20 20:00 113 08/24/20 20:00 98.0 99 20 151/88 (109) 100 RHYTHM: NSR, ST LUNGS: lungs clear bilaterally CARDIAC: regular rhythm, normal S1 and S2, rapid rate ABDOMEN: normal bowel sounds, soft, no organomegaly, distended EXTREMITIES: non-tender, no calf tenderness, normal capillary refill, trace edema Laboratory Tests Test 08/25/20 08:01 Sodium Level 136 MMOL/L (136-145) Potassium Level 3.4 MMOL/L (3.5-5.1) L Chloride Level 101 MMOL/L (98-107) Carbon Dioxide Level 27 MMOL/L (21-32) Anion Gap 9 mmol/L (5-15) Blood Urea Nitrogen 9 mg/dL (7-18) Creatinine 0.8 MG/DL (0.55-1.30) Estimat Glomerular Filtration Rate > 60 mL/min (>60) Glucose Level 126 MG/DL (74-106) H Calcium Level 9.2 MG/DL (8.5-10.1) Total Bilirubin 0.7 MG/DL (0.2-1.0) Aspartate Amino Transf (AST/SGOT) 19 U/L (15-37) Alanine Aminotransferase (ALT/SGPT) 14 U/L (12-78) Alkaline Phosphatase 73 U/L (46-116) Total Protein 7.4 G/DL (6.4-8.2) Albumin 3.4 G/DL (3.4-5.0) Globulin 4.0 g/dL Albumin/Globulin Ratio 0.9 (1.0-2.7) L Assessment/Plan Assessment/Plan Hypertension/HHD now uncontrolled Non-cardiac chest pain Multiple myeloma Hypokalemia Nausea and vomiting Seizure D/O NIDDM Secondary sinus tachycardia Advance antiHTN meds - agree with beta aftab. Anti-emetics Pain control Replace potassium Adjust IVF Continue telemetry Seen with RN at bedside, and made aware she cannot take her own "pain pills" while in hospital. Colin Lake MD Aug 25, 2020 19:06
--- NOTE | 2020-08-25 20:20 | NUR ---
NURSE NOTES: pt at 1545 was unable to take Lopressor because she was nauseas, medication was given 2 hrs later once she was able to tolerate medication. This was endorsed Moustapha/ hillary RN.
--- NOTE | 2020-08-25 21:00 | NUR ---
NURSE HAND-OFF REPORT: Important Events on Shift:[]pt in stable condition. pt has been in pain and had N/V. unable to give lopressor at 1545, it was given 2hrs later once pt was able to tolerate meds. This was endorsed to night RN Patient Status: []full Diet: []soft Pending Orders: [] Pending Results/Labs:[] Pending MD notification:[] Latest Vital Signs: Temperature 98.0 , Pulse 77 , B/P 135 /75 , Respiratory Rate 20 , O2 SAT 100 , Room Air, O2 Flow Rate . Vital Sign Comment: [] EKG Rhythm: Sinus Tachycardia Rhythm change?: N MD Notified?: - MD Response: Latest Cook Fall Score: 85 Fall Risk: High Risk Safety Measures: Call light Within Reach, Bed Alarm Zone 1, Side Rails Side Rails x3, Bed position Low and Locked. Fall Precautions: y Yellow Socks y Door Sign y Patient Fall Education Report given to []Jorge/ITZ
--- NOTE | 2020-08-25 23:13 | NUR ---
NURSE NOTES: Assumed pt's care at 1900 from ITZ Webster. Pt's is aox4, no acute distress noted, respirations even and unlabored, denies any pain at this time. No episodes of emesis & diarrhea noted at this time. IVF of D5 1/2 NS K20meq cont @50cc/hr. IV site patent, and intact, no signs of infiltration noted. 2100 metoprolol dose not administered d/t last admin time by previous nurse. VS WNL. Safety and comfort measures noted, call light within reach.
[2020-08-26] VITALS: BP 147/88
[2020-08-26] MEDS: Metoclopramide 10mg/2ml Inj IVP PRN (04:01)
[2020-08-26] MEDS: Morphine Sulfate 2mg/ml Inj(IV/IM USE ONLY) IVP PRN ×2 (04:03→10:12)
[2020-08-26 04:22] VITALS: BP 139/87
[2020-08-26 07:43] LABS: BASOPHILS % (AUTO) 1.4 % (0.0-2.0); EOSINOPHILS % (AUTO) 0.6 % (0.0-3.0); HEMATOCRIT 42.8 % (37.0-47.0); HEMOGLOBIN 14.3 G/DL (12.0-16.0); LYMPHOCYTES % (AUTO) 18.3 % (20.0-45.0); MEAN CORPUSCULAR VOLUME 92 FL (80-99); MONOCYTES % (AUTO) 10.6 % (1.0-10.0); NEUTROPHILS % (AUTO) 69.1 % (45.0-75.0); PLATELET COUNT 345 K/UL (150-450); RED BLOOD COUNT 4.65 M/UL (4.20-5.40); RED CELL DISTRIBUTION WIDTH 13.8 % (11.6-14.8); WHITE BLOOD COUNT 7.6 K/UL (4.8-10.8)
--- NOTE | 2020-08-26 07:47 | NUR ---
Pt slept well this shift, medicated X1 per request for c/o pain & nausea with prn IVP morphine & reglan with positive effects. Safety and comfort measures maintained, call light within reach.
--- NOTE | 2020-08-26 07:48 | NUR ---
NURSE HAND-OFF REPORT: Important Events on Shift: Pt remains stable, no emesis, no diarrhea this shift. Seen by PCP, possible d/c. Patient Status: Diet: Pending Orders: Pending Results/Labs: Pending MD notification: Latest Vital Signs: Temperature 97.9 , Pulse 82 , B/P 139 /87 , Respiratory Rate 20 , O2 SAT 99 , Room Air, O2 Flow Rate . Vital Sign Comment: EKG Rhythm: Sinus Rhythm Rhythm change?: N MD Notified?: - MD Response: Latest Cook Fall Score: 85 Fall Risk: High Risk Safety Measures: Call light Within Reach, Bed Alarm Zone 1, Side Rails Side Rails x3, Bed position Low and Locked. Fall Precautions: Yellow Socks Yellow Gown Door Sign Patient Fall Education Report given to .
--- NOTE | 2020-08-26 07:50 | NUR ---
NURSE NOTES: pt in bed, sleeping and does not want to be bother for V/S. Pt has residential monitor on, no signs of cardiac or respiratory distress, pt in room air. Bed is locked and in lowest position. Call light within reach. pt is alert oriented x4 and able to verbalize needs. Pt is not in pain at this moment.
[2020-08-26 08:00] VITALS: BP 131/78
[2020-08-26 08:03] LABS: ANION GAP 8 mmol/L (5-15); BLOOD UREA NITROGEN 8 mg/dL (7-18); CALCIUM 8.9 MG/DL (8.5-10.1); CARBON DIOXIDE 27 MMOL/L (21-32); CHLORIDE 102 MMOL/L (98-107); CREATININE 0.8 MG/DL (0.55-1.30); POTASSIUM 3.7 MMOL/L (3.5-5.1); SODIUM 137 MMOL/L (136-145)
--- NOTE | 2020-08-26 09:31 | NUR ---
RD ASSESSMENT & RECOMMENDATIONS SEE CARE ACTIVITY FOR COMPLETE ASSESSMENT DAILY ESTIMATED NEEDS: Needs based on ca 68.4kg abw 25-35 kcals/kg 1649-3465 total kcals 1-2 g protein/kg 68-137 g total protein 25-30 mL/kg 9246-5173 total fluid mLs NUTRITION DIAGNOSIS: Altered GI function related to nausea and emesis as evidenced by pt w/ multiple myeloma, on chemo, variable to poor po intake, on reglan. CURRENT DIET: Soft PO DIET RECOMMENDATIONS: Maintain Soft diet as tolerated ADDITIONAL RECOMMENDATIONS: 1) Glucerna TID w/ meals 2) Obtain a standing weight as able 3) rec POC/ bedside BG checks w/ emesis and poor po Monitor for hypoglycemia 4) Check lytes daily 5) Snacks in b/w meals as tolerated
[2020-08-26] MEDS: Valproic Acid 250mg/5ml Liquid ORAL SCH (10:10)
[2020-08-26] MEDS: levETIRAcetam 500mg/5ml Liquid NG SCH (10:11)
[2020-08-26] MEDS: Dorzolamide 2% 10ml Btl BOTH EYES SCH ×2 (10:16→13:00)
[2020-08-26] MEDS: Lisinopril 10mg tab ORAL SCH (10:16)
[2020-08-26 10:17] VITALS: BP 131/78
--- NOTE | 2020-08-26 13:13 | NUR ---
NURSE NOTES: pt DC home via [facility]. She will call them from down stairs. Son is aware she is being DC today. Pt IV was taken out, no visible bleeding applied 4x4. Pt cotton header was taken off. Medication that was being stored in the Pharmacy was given back to pt. before she left. Pt was also given her prescription. Discharge instructions were reviewed by charge nurse with pt. Pt was in a hurry to leave because her son was going to go to work. Also pt did not wanted to wait for a walker, she says she has one at home.
--- NOTE | 2020-08-26 18:35 | Cardiology Progress Note ---
Subjective DATE OF SERVICE: Aug 26, 2020 Abdominal pain with better control. Monitor: sinus with sinus tachycardia Nausea improved; diet tolerated without emesis today. Objective Last 24 Hour Vital Signs Date Time Temp Pulse Resp B/P (MAP) Pulse Ox O2 Delivery O2 Flow Rate FiO2 08/26/20 10:17 119 131/78 08/26/20 10:16 119 131/78 08/26/20 10:16 131/78 08/26/20 09:00 Room Air 08/26/20 08:00 80 08/26/20 08:00 98.2 119 20 131/78 (95) 100 08/26/20 04:22 97.9 82 20 139/87 (104) 99 08/26/20 03:50 82 08/26/20 00:00 74 08/26/20 00:00 98.0 91 20 147/88 (107) 100 08/25/20 21:52 Room Air 08/25/20 20:32 77 135/75 08/25/20 20:00 84 08/25/20 20:00 98.2 77 20 135/75 (95) 100 RHYTHM: NSR, ST LUNGS: lungs clear bilaterally CARDIAC: regular rhythm, normal S1 and S2, rapid rate ABDOMEN: normal bowel sounds, soft, no organomegaly, distended EXTREMITIES: non-tender, no calf tenderness, normal capillary refill, trace edema Laboratory Tests Test 08/26/20 06:17 White Blood Count 7.6 K/UL (4.8-10.8) Red Blood Count 4.65 M/UL (4.20-5.40) Hemoglobin 14.3 G/DL (12.0-16.0) Hematocrit 42.8 % (37.0-47.0) Mean Corpuscular Volume 92 FL (80-99) Mean Corpuscular Hemoglobin 30.6 PG (27.0-31.0) Mean Corpuscular Hemoglobin Concent 33.3 G/DL (32.0-36.0) Red Cell Distribution Width 13.8 % (11.6-14.8) Platelet Count 345 K/UL (150-450) Mean Platelet Volume 9.3 FL (6.5-10.1) Neutrophils (%) (Auto) 69.1 % (45.0-75.0) Lymphocytes (%) (Auto) 18.3 % (20.0-45.0) L Monocytes (%) (Auto) 10.6 % (1.0-10.0) H Eosinophils (%) (Auto) 0.6 % (0.0-3.0) Basophils (%) (Auto) 1.4 % (0.0-2.0) Sodium Level 137 MMOL/L (136-145) Potassium Level 3.7 MMOL/L (3.5-5.1) Chloride Level 102 MMOL/L (98-107) Carbon Dioxide Level 27 MMOL/L (21-32) Anion Gap 8 mmol/L (5-15) Blood Urea Nitrogen 8 mg/dL (7-18) Creatinine 0.8 MG/DL (0.55-1.30) Estimat Glomerular Filtration Rate > 60 mL/min (>60) Glucose Level 109 MG/DL (74-106) H Calcium Level 8.9 MG/DL (8.5-10.1) Magnesium Level 1.9 MG/DL (1.8-2.4) Assessment/Plan Assessment/Plan Hypertension/HHD now controlled Non-cardiac chest pain Multiple myeloma Hypokalemia corrected Nausea and vomiting Seizure D/O NIDDM Secondary sinus tachycardia improved Maintain current antiHTN meds - continue beta aftab. Anti-emetics as needed Pain control regimen in place. Follow up potassium levels as outpatient Stable for outpatient care from cardiovascular standpoint. Colin Lake MD Aug 26, 2020 18:35
--- NOTE | 2020-08-27 13:23 | Discharge Summary ---
Discharge Summary Discharge Summary _ Date of admission: 08/20/2020 Date of discharge: 08/26/[address] Gayle History of Present Illness and Brief Hospital Course Ms. Perez is a 60-year-old female with past medical history of asthma, hypertension, diabetes mellitus, multiple myeloma, and CVA, who presented to ED for evaluation of nausea, vomiting, and diarrhea x1 week. She also complained of chest pain radiating to her back x3 days. Patient also stated that she was recently diagnosed with UTI and was taking a prescription antibiotic twice a day but was unable to keep anything down due to vomiting. Patient was undergoing chemotherapy due to remission with multiple myeloma. Chest x-ray showed no acute cardiopulmonary disease. Venous duplex ultrasound of legs was negative for DVT. Abdomen/pelvis CT showed mild peripheral groundglass densities in bilateral lung bases, multiple lucent lesions in the lumbar spine and bony pelvis, and small fatty supraumbilical hernia. Head CT showed no acute intracranial abnormality. Patient was admitted to the hospital for further management. EKG showed sinus tachycardia. Ejection fraction was 60-65% on 2D echocardiogram. Patient was continued on antihypertensives. Her potassium was level was found to be low and potassium was replaced. Her outpatient oncologist reported that some of the chemotherapy drugs could cause diarrhea. C. difficile was ordered but stool sample was unable to be collected until the time of discharge. Patient began tolerating diet without emesis. Patient was continued on antiemetics. Patient was medically stable for an outpatient care. Pt was discharged on 08/26/2020. Consultants: Cardiology Dr. Lake Discharge Condition Improved and stable Final diagnoses Hypokalemia Hypertension Multiple myeloma Seizure disorder [id number] diabetes mellitus Hiatal hernia I have been assigned to dictate discharge summary for this account. I was not involved in the patient's management Carlos De León Aug 27, 2020 13:23
== END 2020-08-26 12:45 | disposition home or self-care (01) | DRG 425 ==
LOC: EDBD 19:09 → EMR 19:24 → EDBEDREQ 19:27 → 2E 21:09 → OBSVTOIN 21:09 → EDBEDREQ 08-21 18:09
DX: E87.6 Hypokalemia (principal); C90.00 Multiple myeloma not having achieved remission; E11.9 Type 2 diabetes mellitus without complications; K44.9 Diaphragmatic hernia without obstruction or gangrene; Z86.16 Personal history of COVID-19; R07.89 Other chest pain; I11.9 Hypertensive heart disease without heart failure; R11.2 Nausea with vomiting, unspecified; R19.7 Diarrhea, unspecified; R00.0 Tachycardia, unspecified; R56.9 Unspecified convulsions
CPT/HCPCS: 36415; 70450; 71045; 71260; 74176; 80048; 80053; 80164; 81003; 82550; 83605; 83690; 83735; 83880; 84484; 85025; 85610; 85730; 87324; 93005; 93306; 93970; 96360; 96361; 96374; 96375; 96376; 99285; J2405; J2765; J7030; J8499